=== PATIENT | male | born 1960 | race Caucasian/White ===

== ENCOUNTER 2020-11-19 15:02 | Inpatient (IN) ==
[2020-11-19] MEDS ORDERED: MULTI-VITAMIN INFUSION 10 ML, THIAMINE HCL 100 MG, FOLIC ACID 1 MG in SODIUM CHLORIDE 0... IV ONE (15:23)
[2020-11-19] MEDS ORDERED: LORazepam 2 MG/4 ML VIAL IV STA (15:23)
[2020-11-19 15:47] LABS: Basophils # (auto) 0.02 K/uL (0-0.2); Basophils % (auto) 0.3 %; Eosinophils # (auto) 0.12 K/uL (0-0.5); Eosinophils % (auto) 1.9 %; Hematocrit (blood only) 44.7 % (42-52); Hemoglobin 15.7 g/dL (14.0-18.0); Immature Granulocytes # (auto) 0.01 K/uL (0.00-0.02); Immature Granulocytes % (auto) 0.2 %; Lymphocytes # (auto) 1.76 K/uL (1.2-3.4); Lymphocytes % (auto) 27.2 %; Mean Corpuscular Hemoglobin 31.7 pg (25-34); Mean Corpuscular Hgb Conc 35.1 g/dL (32-36); Mean Corpuscular Volume 90.3 fL (80-100); Mean Platelet Volume 11.2 fL (7.4-10.4); Monocytes # (auto) 0.82 K/uL (0.11-0.59); Monocytes % (auto) 12.7 %; Neutrophils # (auto) 3.75 K/uL (1.4-6.5); Neutrophils % (auto) 57.7 %; Platelet Count 167 K/uL (130-400); RDW Coefficient of Variation 14.3 % (11.5-14.5); RDW Standard Deviation 46.9 fL (36.4-46.3); Red Blood Count 4.95 M/uL (4.7-6.1); White Blood Count 6.48 K/uL (4.8-10.8)
[2020-11-19 16:03] LABS: Partial Thromboplastin Ratio 0.9; Partial Thromboplastin Time 24.5 Seconds (21.0-31.0); Prothrombin Time 10.6 Seconds (9.0-12.0)
[2020-11-19 16:06] LABS: Alanine Aminotransferase 82 U/L (12-78); Albumin Level 3.7 gm/dl (3.4-5.0); Aspartate Aminotransferase 48 U/L (15-37); BUN Creatinine Ratio 12.1 (10-20); Blood Urea Nitrogen 9 mg/dl (7-18); Calcium 8.9 mg/dl (8.5-10.1); Carbon Dioxide 24 mmol/L (21-32); Chloride 100 mmol/L (98-107); Creatinine Clr Calc Pharmacy 106.9 ml/min; Est GFR (African American) 114.6; Est GFR (Non-African American) 98.9; Glucose 230 mg/dl (70-99); Lipase 91 U/L (73-393); Magnesium 1.7 mg/dl (1.8-2.4); Potassium 3.6 mmol/L (3.5-5.1); Sodium 138 mmol/L (136-145)
--- NOTE | 2020-11-19 16:10 | XRay Report ---
XR chest 1V portable HISTORY: 60 years-old Male ETOH w/d. Afib with RVR acute atrial fibrillation. Acute atypical chest p ain COMPARISON: None TECHNIQUE: Portable AP view of the chest FINDINGS: Cardiomediastinal and hilar silhouettes are within normal limits. Mild interstitial coarsening of the lung bases, likely chronic. No pneumothorax, pleural effusion, airspace consolidation or overt pulmo nary edema. Degenerative changes of the shoulders and spine. IMPRESSION: No acute process. ACT 112: Negative or not required by law. The above report was generated using voice recognition software. It may contain grammatical, syntax o r spelling errors. Electronically signed by: Dayron Warner M.D. 11/19/2020 4:09 PM
[2020-11-19 16:17] LABS: Albumin Globulin Ratio 0.9 (0.9-2); Alkaline Phosphatase 99 U/L (45-117); Beta-Hydroxybutyrate 4.73 mg/dl (0.2-2.81); Bilirubin,Total 0.5 mg/dl (0.2-1); Globulin 4.1 gm/dl (2.5-4.0); Thyroid Stimulating Hormone 0.847 uIu/ml (0.300-4.500); Total Protein 7.8 gm/dl (6.4-8.2); Troponin I < 0.015 ng/ml (0-0.045)
[2020-11-19 16:46] LABS: Lyme Ab IgG w/WB Rflx Negative (Negative); Lyme Ab IgM w/WB Rflx Negative (Negative)
[2020-11-19] MEDS ORDERED: MAGNESIUM SULFATE / D5W 1 GM/100 ML BAG IV STA (17:22)
[2020-11-19] MEDS ORDERED: SODIUM CHLORIDE 0.9% 1000ML 1,000 ML IV SCH (17:30)
[2020-11-19 17:43] LABS: Influenza A virus by PCR Negative (Neg); Influenza B virus by PCR Negative (Neg); RSV by PCR Negative (Neg); SARS CoV2 RNA(COVID-19) InHosp NEGATIVE (Negative)
--- NOTE | 2020-11-19 18:04 | History & Physical Report ---
Date of Service November 19, 2020 Assessment & Plan (1) Alcohol intoxication: History of long-term alcohol abuse: Recent admission to [facility] for alcohol intoxication. Reports he developed nausea, abdominal pain, could not drink alcohol anymore, was admitted to hospital with withdrawal symptoms, Was there for 2 days only, after returning home, patient found 3 more bottles of gin, finished all of them in 1 day, Past 2 to 3 days, has been having ongoing nausea, severe abdominal pain, vomiting, no blood in vomit, no dark stool, Was having confusion, tremors, Brought to ER, Patient was given banana bag, will continue with Neuront[facility] withdrawal protocol, IV Ativan ordered Continue thiamine folic acid Patient will need referral for alcohol rehab/counseling Case management consulted (2) Diabetes mellitus: History of type 2 diabetes, has not been taking any medication for years Continues to binge alcohol, Admitted with hyperglycemia, elevated beta- hydroxybutyrate- Ordered for insulin sliding scale check hemoglobin A1c pharmacy consult for glycemic management Severe electrolyte imbalance: Low mag, low K/low phos #2 alcohol abuse Ordered for IV replacement, follow electrolytes closely (3) Low magnesium level: (4) Abnormal LFTs: Secondary to alcoholic hepatitis Repeat labs in a.m. (5) Tachyarrhythmia: Possibly secondary to severe dehydration, chronic alcohol abuse. Rate improved after IV fluid resuscitation, continue IV Ativan, gabapentin for withdrawal symptoms. Admitted to telemetry, IV Lopressor as needed for heart rate above 100 Echo ordered to assess alcoholic cardiomyopathy CODE STATUS: Full code Disposition: Admitted to PCU History of Present Illness Chief Complaint: Alcohol intoxication Primary Care Provider: Luis Enrique Montana MD This is a 59-year-old male with chronic alcohol abuse, drinks 1-2 bottles of gin every day, has been drinking for past 15-20 years, Never been of alcohol and off to get withdrawal symptoms, was in [facility] last week for alcohol intoxication/withdrawal, After discharge, patient went back drinking alcohol again: Was found to be disoriented, at roadside by police, was brought here, patient is very tachycardic, tremors, sweating Initial EKG showed rapid A. fib RVR with heart rate of 140s After receiving Ativan, IV fluids, repeat EKG shows normal sinus rhythm with sinus tachycardia. LFTs elevated, During my interview, patient was oriented to person only, has ongoing tremors, Says that he has been dealing with his alcoholism for years, was so sober for for 5 years, started to drink again since July this year. Denies of any illicit drug abuse, no IV drugs. Patient has not been seeing any family physician for years Supposed to follow-up with Dr. Dale at [facility], never showed up to any of the appointments. Diagnosed with diabetes years ago, has not been taking any meds Blood sugar elevated 300 with elevated beta hydroxybutyrate, Normal anion gap, normal bicarb level. LFTs elevated suggestive of alcoholic hepatitis Allergies Allergy/AdvReac Type Severity Reaction Status Date / Time cat dander Allergy Intermediate ITCHY Verified 11/19/20 16:11 EYES, SNEEZING, CONGESTION Home Medications Medication Instructions Recorded Confirmed Type No Known Home Medications 03/23/20 11/19/20 History Past Med/Surg History Medical History (Updated 11/20/20 @ 00:08 by Keith Adame PA-C) Alcoholism Diabetes Diabetes mellitus Surgical History (Updated 11/20/20 @ 00:08 by Keith Adame PA-C) No significant past surgical history Social History Smoking Status: Current every day smoker Tobacco Type: Cigarettes Cigarettes Per Day: 1 pack/day; Smoking End Date: 11/18/20; Hx Alcohol Use: Yes Alcohol type: beer and hard liquor Hx Substance Use: No Preferred Language: Haitian Cook Apprentice Required: No Beliefs That Will Affect Care: Faith Current Living Situation: Alone Current Living Situation Comment: Lives at home alone independently Feels Safe at Home: Yes Safety Concerns: Feels Safe At This Time Assistive Devices: None Review of Systems Review of Systems: Unobtainable due to cognitive status (Confused/intoxicated) Physical Exam Physical Exam: Physical exam: General: Intoxicated, alert, oriented to person only /very tremulous, diaphoretic Heart: Tachycardic Lungs: Clear to auscultate, no wheeze or rales Abdomen: Soft /distended abdomen, normal bowel sound Extremity: No cyanosis, no deformity, Neuro: No focal neurological deficit noted, moving all limbs, Intoxicated Psych: Alert, oriented to person only flat affect Results & Data Results & Data ([facility]) Vital Signs (Past 12 Hours) Vital Signs Temp Pulse Resp BP Pulse Ox 11/19/20 16:30 153 H 19 164/117 H 95 11/19/20 16:01 143 H 21 179/114 H 95 11/19/20 15:37 152 H 16 185/106 H 95 11/19/20 15:24 93 11/19/20 15:14 152 H 16 170/119 H 11/19/20 14:53 37.3 C 159 H 20 170/119 H 92
[2020-11-19 18:06] LABS: Appearance Urine Clear (Clear); Bilirubin Urine Negative (Negative); Blood Urine Negative (Negative); Color Urine Yellow; Glucose Urine UA 3+ (Negative); Ketones Urine 1+ (Negative); Leukocyte Esterase Urine Negative (Negative); Nitrite Urine Negative (Negative); Protein Urine Negative (Negative); Specific Gravity Urine 1.019 (1.000-1.030); Urobilinogen Urine Negative (Negative); pH Urine 6.5 (4.5-7.5)
[2020-11-19] MEDS ORDERED: ONDANSETRON INJ 2 MG/ML 2 ML VIAL IV PRN (18:13)
[2020-11-19] MEDS ORDERED: ALUMINUM/MAGNESIUM SUSP 30 ML UDC PO PRN (18:13)
[2020-11-19] MEDS ORDERED: ACETAMINOPHEN 325 MG TAB PO PRN (18:13)
[2020-11-19] MEDS ORDERED: MAGNESIUM HYDROXIDE SUSP 30 ML UDC PO PRN (18:13)
[2020-11-19] MEDS ORDERED: GLUCOSE 40% GEL 15 GM TUBE PO PRN (18:13)
[2020-11-19] MEDS ORDERED: NITROGLYCERIN SL 0.4 MG/TAB TAB SL PRN (18:13)
[2020-11-19] MEDS ORDERED: GLUCAGON FOR INJ 1 MG VIAL SQ PRN (18:13)
[2020-11-19] MEDS ORDERED: GLUCOSE 10 TABS/TUBE PO PRN (18:13)
[2020-11-19] MEDS ORDERED: POLYETHYLENE (MIRALAX) 17 GM PACK PO PRN (18:13)
[2020-11-19] MEDS ORDERED: DEXTROSE 50% 50 ML SYRINGE IV PRN (18:13)
[2020-11-19] MEDS ORDERED: CARBOHYDRATES FOR HYPOGLYCEMIA PO PRN (18:13)
[2020-11-19] MEDS ORDERED: PHARMACY GLYCEMIC MGMT CONSULT PRN (18:29)
[2020-11-19 18:34] LABS: Amphetamines+Metham, Urine Neg (Neg); Barbiturates, Urine Neg (Neg); Benzodiazepine, Urine Pos (Neg); Cocaine, Urine Neg (Neg); MDMA (Ecstacy), Urine Neg (Neg); Methadone, Urine Neg (Neg); Opiate, Urine Neg (Neg); Phencyclidine, Urine Neg (Neg)
[2020-11-19] MEDS ORDERED: GABAPENTIN 600 MG TAB PO ONE (20:28)
[2020-11-19] MEDS ORDERED: METOPROLOL TARTRATE 1 MG/ML VIAL IV PRN (20:28)
[2020-11-19] MEDS ORDERED: LORazepam 3 MG/6 ML VIAL IV PRN (20:28)
[2020-11-19] MEDS ORDERED: LACTATED RINGER'S 1,000 ML IV SCH (20:28)
[2020-11-19] MEDS ORDERED: GABAPENTIN 1200MG ALCOHOL WITHDRAWAL LOAD PO STA (20:28)
[2020-11-19] MEDS ORDERED: ATIVAN IV ALCOHOL WITHDRAWL IV PRN (20:28)
[2020-11-19] MEDS: FOLIC ACID 1 MG TAB PO SCH (21:09)
[2020-11-19] MEDS: THIAMINE HCL 100 MG TAB PO SCH (21:10)
[2020-11-19] MEDS: INSULIN ASPART 100 UNITS/ML 3 ML PEN SC SCH (21:11)
[2020-11-19] MEDS: LORazepam 1 MG/2 ML VIAL IV PRN (22:01)
--- NOTE | 2020-11-19 23:12 | Electrocardiogram Report ---
Test Reason : Blood Pressure : / mmHG Vent. Rate : 159 BPM Atrial Rate : 113 BPM P-R Int : 000 ms QRS Dur : 122 ms QT Int : 298 ms P-R-T Axes : 000 084 001 degrees QTc Int : 484 ms Atrial fibrillation with rapid ventricular response Right bundle branch block Abnormal ECG No previous ECGs available Confirmed by Obinna Mcgill ([id number]) on 11/19/2020 11:12:11 PM Referred By: Confirmed By:Obinna Mcgill
--- NOTE | 2020-11-20 00:06 | Emergency Department Note ---
History of Present Illness General Chief complaint: Alcohol Withdrawal Stated complaint: ALCOHOL WITHDRAWL History of Present Illness Maximum Pain Intensity: 0 This is a 60-year-old male presenting to the emergency department via ambulance for evaluation of alcohol withdrawal symptoms. The patient is an alcoholic often drinking more than a bottle of alcohol in a normal day. The patient was admitted to [facility] within the past 2 weeks for similar withdrawal symptoms, was released home, and immediately started drinking. He states that his last alcohol was about 24 to 25 hours ago. The patient typically drinks hard liquor. He is concerned as he is very shaky at this time and feels very nauseated without vomiting. He is sweating profusely and feels like his heart is racing in his chest. The patient has not had fevers or chills. No known exposure to disease. He rates his current discomfort a 9/10. Home Medications Medication Instructions Recorded Confirmed Type No Known Home Medications 03/23/20 11/19/20 History Allergies Allergy/AdvReac Type Severity Reaction Status Date / Time cat dander Allergy Intermediate ITCHY Verified 11/19/20 16:11 EYES, SNEEZING, CONGESTION Past Med/Surg History Medical History (Updated 11/20/20 @ 00:08 by Keith Adame PA-C) Alcoholism Diabetes Diabetes mellitus Surgical History (Updated 11/20/20 @ 00:08 by Keith Adame PA-C) No significant past surgical history Social History Smoking Status: Current every day smoker Tobacco Type: Cigarettes Cigarettes Per Day: 1 pack/day; Smoking End Date: 11/18/20; Hx Alcohol Use: Yes Alcohol type: beer and hard liquor Hx Substance Use: No Preferred Language: Mongolian Quality Assurance Nurse Required: No Beliefs That Will Affect Care: Islam Current Living Situation: Alone Current Living Situation Comment: Lives at home alone independently Feels Safe at Home: Yes Safety Concerns: Feels Safe At This Time Review of Systems A total of 10 systems reviewed and were otherwise negative Physical Exam Vital Signs Vital Signs - 24 hr 11/19/20 14:53 11/19/20 15:14 11/19/20 15:24 Temperature 37.3 C Temperature Source Oral Pulse Rate 159 H 152 H Pulse Rate from SpO2 Sensor Respiratory Rate 20 16 Respiratory Effort / Characteristics Non-Labored Spontaneous Respiratory Depth Normal Respiratory Pattern Regular Blood Pressure 170/119 H 170/119 H Blood Pressure Mean 136 136 Blood Pressure Position Lying Pulse Oximetry 92 93 Oxygen Delivery Method Room Air Room Air Sepsis Recent Fever Within 48 Hours No Sepsis New/Unexplained Change in Mental Status N/A Sepsis Action Taken by Nursing No Action Required 11/19/20 15:37 11/19/20 16:01 11/19/20 16:30 Temperature Temperature Source Pulse Rate 152 H 143 H 153 H Pulse Rate from SpO2 Sensor 151 H 139 H 153 H Respiratory Rate 16 21 19 Respiratory Effort / Characteristics Respiratory Depth Respiratory Pattern Blood Pressure 185/106 H 179/114 H 164/117 H Blood Pressure Mean 132 135 132 Blood Pressure Position Pulse Oximetry 95 95 95 Oxygen Delivery Method Sepsis Recent Fever Within 48 Hours Sepsis New/Unexplained Change in Mental Status Sepsis Action Taken by Nursing 11/19/20 17:00 11/19/20 17:30 11/19/20 18:00 Temperature Temperature Source Pulse Rate 133 H 93 H 94 H Pulse Rate from SpO2 Sensor 131 H 93 H 94 H Respiratory Rate 11 L 16 14 Respiratory Effort / Characteristics Respiratory Depth Respiratory Pattern Blood Pressure 158/104 H 150/90 H 160/91 H Blood Pressure Mean 122 110 114 Blood Pressure Position Pulse Oximetry 93 91 93 Oxygen Delivery Method Sepsis Recent Fever Within 48 Hours Sepsis New/Unexplained Change in Mental Status Sepsis Action Taken by Nursing VITALS: Vitals are noted on the nurse's note and reviewed by myself. Vital sig ns with notable tachycardia and elevated blood pressure GENERAL: Diaphoretic and tremulous male who appears in moderate discomfort HEAD: Normocephalic atraumatic. NECK: Supple without nuchal rigidity. No lymphadenopathy. No thyromegaly. Cervical spine is nontender. HEART: Tachycardic rate LUNGS: Clear to auscultation bilaterally without wheezes, rales or rhonchi. No retractions or accessory muscle use. ABDOMEN: Positive normal bowel sounds x 4. Soft, nontender, without masses or organomegaly. No guarding or rebound tenderness. MUSCULOSKELETAL: No muscle atrophy, erythema, or edema noted. NEURO: Patient was alert and oriented to person place and time. CN II through XII grossly intact. Course Administered Medications Folic Acid (Folic Acid 1 Mg Tab) 1 mg PO QAM SHUN Stop: 12/19/20 20:27 Last Admin: 11/19/20 21:09 Dose: 1 mg Documented by: [id number] Lorazepam (Ativan) 1 mg in 2 mls @ 2 mls/min IV UD PRN; Protocol PRN Reason: EtOH Withdrawl AWSS Score 6,7 Stop: 12/19/20 20:27 Last Admin: 11/19/20 22:01 Dose: 2 mls/min Documented by: [id number] Lactated Ringer's (Lr) 1,000 mls @ 125 mls/hr IV .Q8H SHUN Stop: 11/20/20 04:27 Last Admin: 11/19/20 20:47 Dose: 125 mls/hr Documented by: [id number] Insulin Aspart (Insulin Aspart 100 Units/Ml 3 Ml Pen) 0 units SC ACHS SHUN Stop: 12/19/20 20:59 Last Admin: 11/19/20 21:11 Dose: 8 units Documented by: [id number] Cosigned by: [id number] Thiamine HCl (Thiamine Hcl 100 Mg Tab) 100 mg PO QAM SHUN Stop: 12/19/20 20:27 Last Admin: 11/19/20 21:10 Dose: 100 mg Documented by: [id number] Discontinued Medications Gabapentin (Gabapentin 600 Mg Tab) 1,200 mg PO NOW ONE Stop: 11/19/20 20:29 Last Admin: 11/19/20 21:09 Dose: 1,200 mg Documented by: [id number] Lorazepam (Ativan) 2 mg in 4 mls @ 4 mls/min IV NOW STA Stop: 11/19/20 15:24 Last Admin: 11/19/20 16:22 Dose: 4 mls/min Documented by: [id number] Multivitamins 10 ml/ Thiamine HCl 100 mg/ Folic Acid 1 mg/Sodium Chloride 1,011.2 mls @ 1,011.2 mls/hr IV .Q1H ONE Stop: 11/19/20 16:22 Last Infusion: 11/19/20 17:07 Dose: 0 mls/hr Documented by: [id number] Admin: 11/19/20 16:22 Dose: 1,011.2 mls/hr Documented by: [id number] Sodium Chloride (Nss 1000ml) 1,000 mls @ 999 mls/hr IV .Q1H1M SHUN Stop: 11/19/20 18:30 Last Infusion: 11/19/20 19:51 Dose: 0 mls/hr Documented by: [id number] Admin: 11/19/20 18:40 Dose: 999 mls/hr Documented by: [id number] Magnesium Sulfate/Dextrose (Magnesium Sulfate / D5w) 1 gm in 100 mls @ 100 mls/hr IV NOW STA Stop: 11/19/20 18:21 Last Infusion: 11/19/20 19:51 Dose: 0 mls/hr Documented by: [id number] Admin: 11/19/20 18:40 Dose: 100 mls/hr Documented by: [id number] Medical Decision Making Differential Diagnosis Differential includes alcohol withdrawal, DTs, diabetes, acute coronary syndrome, myocardial infarction, CVA, TIA, anemia, infection, pneumonia, UTI, pyelonephritis, poor nutrition, dehydration, electrolyte disturbance,hypoglycemia. Laboratory Data Result diagrams: 11/19/20 15:34 11/19/20 15:34 Lab Results 11/19/20 11/19/20 11/19/20 Range/Units 15:34 15:34 15:34 WBC 6.48 (4.8-10.8) K/uL RBC 4.95 (4.7-6.1) M/uL Hgb 15.7 (14.0-18.0) g/dL Hct 44.7 (42-52) % MCV 90.3 (80-100) fL MCH 31.7 (25-34) pg MCHC 35.1 (32-36) g/dL RDW Std Deviation 46.9 H (36.4-46.3) fL RDW Coeff of Amara 14.3 (11.5-14.5) % Plt Count 167 (130-400) K/uL MPV 11.2 H (7.4-10.4) fL Immature Gran % (Auto) 0.2 % Neut % (Auto) 57.7 % Lymph % (Auto) 27.2 % [place] % (Auto) 12.7 % Eos % (Auto) 1.9 % Baso % (Auto) 0.3 % Neut # (Auto) 3.75 (1.4-6.5) K/uL Lymph # (Auto) 1.76 (1.2-3.4) K/uL [place] # (Auto) 0.82 H (0.11-0.59) K/uL Eos # (Auto) 0.12 (0-0.5) K/uL Baso # (Auto) 0.02 (0-0.2) K/uL Immature Gran # (Auto) 0.01 (0.00-0.02) K/uL PT 10.6 (9.0-12.0) Seconds INR 1.0 (0.9-1.1) APTT 24.5 (21.0-31.0) Seconds PTT Ratio 0.9 Sodium 138 (136-145) mmol/L Potassium 3.6 (3.5-5.1) mmol/L Chloride 100 (98-107) mmol/L Carbon Dioxide 24 (21-32) mmol/L Anion Gap 13.0 H (3-11) BUN 9 (7-18) mg/dl Creatinine 0.74 (0.6-1.4) mg/dl Est Cr Clr Drug Dosing 106.9 ml/min Est GFR ( Amer) 114.6 Est GFR (Non-Af Amer) 98.9 BUN/Creatinine Ratio 12.1 (10-20) Glucose 230 H (70-99) mg/dl Calcium 8.9 (8.5-10.1) mg/dl Phosphorus (2.5-4.9) mg/dl Magnesium 1.7 L (1.8-2.4) mg/dl Total Bilirubin 0.5 (0.2-1) mg/dl AST 48 H (15-37) U/L ALT 82 H (12-78) U/L Alkaline Phosphatase 99 (45-117) U/L Troponin I < 0.015 (0-0.045) ng/ml Total Protein 7.8 (6.4-8.2) gm/dl Albumin 3.7 (3.4-5.0) gm/dl Globulin 4.1 H (2.5-4.0) gm/dl Albumin/Globulin Ratio 0.9 (0.9-2) Lipase 91 (73-393) U/L Beta-Hydroxybutyric Acd 4.73 H (0.2-2.81) mg/dl TSH 0.847 (0.300-4.500) uIu/ml Urine Color Urine Appearance (Clear) Urine pH (4.5-7.5) Ur Specific [place] (1.000-1.030) Urine Protein (Negative) Urine Glucose (UA) (Negative) Urine Ketones (Negative) Urine Blood (Negative) Urine Nitrite (Negative) Urine Bilirubin (Negative) Urine Urobilinogen (Negative) Ur Leukocyte Esterase (Negative) Urine Opiates Screen (Neg) Ur Methadone, Qual (Neg) Urine Barbiturates (Neg) Ur Phencyclidine (PCP) (Neg) U Amphetamin/Meth Scrn (Neg) MDMA (Ecstasy) Screen (Neg) U Benzodiazepines Scrn (Neg) Ur Cocaine Metabolite (Neg) U Marijuana (THC) Screen (Neg) Ethyl Alcohol mg/dL (0-3) mg/dl Lyme Disease IgG Ab (Negative) Lyme Disease IgM Ab (Negative) COVID-19 Eval Order SARS-CoV-2 (PCR) (Negative) Influenza Type A (PCR) (Neg) Influenza Type B (PCR) (Neg) RSV (RT-PCR) (Neg) 11/19/20 11/19/20 11/19/20 Range/Units 15:34 15:34 15:34 WBC (4.8-10.8) K/uL RBC (4.7-6.1) M/uL Hgb (14.0-18.0) g/dL Hct (42-52) % MCV (80-100) fL MCH (25-34) pg MCHC (32-36) g/dL RDW Std Deviation (36.4-46.3) fL RDW Coeff of Amara (11.5-14.5) % Plt Count (130-400) K/uL MPV (7.4-10.4) fL Immature Gran % (Auto) % Neut % (Auto) % Lymph % (Auto) % [place] % (Auto) % Eos % (Auto) % Baso % (Auto) % Neut # (Auto) (1.4-6.5) K/uL Lymph # (Auto) (1.2-3.4) K/uL [place] # (Auto) (0.11-0.59) K/uL Eos # (Auto) (0-0.5) K/uL Baso # (Auto) (0-0.2) K/uL Immature Gran # (Auto) (0.00-0.02) K/uL PT (9.0-12.0) Seconds INR (0.9-1.1) APTT (21.0-31.0) Seconds PTT Ratio Sodium (136-145) mmol/L Potassium (3.5-5.1) mmol/L Chloride (98-107) mmol/L Carbon Dioxide (21-32) mmol/L Anion Gap (3-11) BUN (7-18) mg/dl Creatinine (0.6-1.4) mg/dl Est Cr Clr Drug Dosing ml/min Est GFR ( Amer) Est GFR (Non-Af Amer) BUN/Creatinine Ratio (10-20) Glucose (70-99) mg/dl Calcium (8.5-10.1) mg/dl Phosphorus 3.0 (2.5-4.9) mg/dl Magnesium (1.8-2.4) mg/dl Total Bilirubin (0.2-1) mg/dl AST (15-37) U/L ALT (12-78) U/L Alkaline Phosphatase (45-117) U/L Troponin I (0-0.045) ng/ml Total Protein (6.4-8.2) gm/dl Albumin (3.4-5.0) gm/dl Globulin (2.5-4.0) gm/dl Albumin/Globulin Ratio (0.9-2) Lipase (73-393) U/L Beta-Hydroxybutyric Acd (0.2-2.81) mg/dl TSH (0.300-4.500) uIu/ml Urine Color Urine Appearance (Clear) Urine pH (4.5-7.5) Ur Specific [place] (1.000-1.030) Urine Protein (Negative) Urine Glucose (UA) (Negative) Urine Ketones (Negative) Urine Blood (Negative) Urine Nitrite (Negative) Urine Bilirubin (Negative) Urine Urobilinogen (Negative) Ur Leukocyte Esterase (Negative) Urine Opiates Screen (Neg) Ur Methadone, Qual (Neg) Urine Barbiturates (Neg) Ur Phencyclidine (PCP) (Neg) U Amphetamin/Meth Scrn (Neg) MDMA (Ecstasy) Screen (Neg) U Benzodiazepines Scrn (Neg) Ur Cocaine Metabolite (Neg) U Marijuana (THC) Screen (Neg) Ethyl Alcohol mg/dL 58.0 H (0-3) mg/dl Lyme Disease IgG Ab Negative (Negative) Lyme Disease IgM Ab Negative (Negative) COVID-19 Eval Order SARS-CoV-2 (PCR) (Negative) Influenza Type A (PCR) (Neg) Influenza Type B (PCR) (Neg) RSV (RT-PCR) (Neg) 11/19/20 11/19/20 11/19/20 Range/Units 16:52 16:52 17:48 WBC (4.8-10.8) K/uL RBC (4.7-6.1) M/uL Hgb (14.0-18.0) g/dL Hct (42-52) % MCV (80-100) fL MCH (25-34) pg MCHC (32-36) g/dL RDW Std Deviation (36.4-46.3) fL RDW Coeff of Amara (11.5-14.5) % Plt Count (130-400) K/uL MPV (7.4-10.4) fL Immature Gran % (Auto) % Neut % (Auto) % Lymph % (Auto) % [place] % (Auto) % Eos % (Auto) % Baso % (Auto) % Neut # (Auto) (1.4-6.5) K/uL Lymph # (Auto) (1.2-3.4) K/uL [place] # (Auto) (0.11-0.59) K/uL Eos # (Auto) (0-0.5) K/uL Baso # (Auto) (0-0.2) K/uL Immature Gran # (Auto) (0.00-0.02) K/uL PT (9.0-12.0) Seconds INR (0.9-1.1) APTT (21.0-31.0) Seconds PTT Ratio Sodium (136-145) mmol/L Potassium (3.5-5.1) mmol/L Chloride (98-107) mmol/L Carbon Dioxide (21-32) mmol/L Anion Gap (3-11) BUN (7-18) mg/dl Creatinine (0.6-1.4) mg/dl Est Cr Clr Drug Dosing ml/min Est GFR ( Amer) Est GFR (Non-Af Amer) BUN/Creatinine Ratio (10-20) Glucose (70-99) mg/dl Calcium (8.5-10.1) mg/dl Phosphorus (2.5-4.9) mg/dl Magnesium (1.8-2.4) mg/dl Total Bilirubin (0.2-1) mg/dl AST (15-37) U/L ALT (12-78) U/L Alkaline Phosphatase (45-117) U/L Troponin I (0-0.045) ng/ml Total Protein (6.4-8.2) gm/dl Albumin (3.4-5.0) gm/dl Globulin (2.5-4.0) gm/dl Albumin/Globulin Ratio (0.9-2) Lipase (73-393) U/L Beta-Hydroxybutyric Acd (0.2-2.81) mg/dl TSH (0.300-4.500) uIu/ml Urine Color Yellow Urine Appearance Clear (Clear) Urine pH 6.5 (4.5-7.5) Ur Specific [place] 1.019 (1.000-1.030) Urine Protein Negative (Negative) Urine Glucose (UA) 3+ H (Negative) Urine Ketones 1+ H (Negative) Urine Blood Negative (Negative) Urine Nitrite Negative (Negative) Urine Bilirubin Negative (Negative) Urine Urobilinogen Negative (Negative) Ur Leukocyte Esterase Negative (Negative) Urine Opiates Screen (Neg) Ur Methadone, Qual (Neg) Urine Barbiturates (Neg) Ur Phencyclidine (PCP) (Neg) U Amphetamin/Meth Scrn (Neg) MDMA (Ecstasy) Screen (Neg) U Benzodiazepines Scrn (Neg) Ur Cocaine Metabolite (Neg) U Marijuana (THC) Screen (Neg) Ethyl Alcohol mg/dL (0-3) mg/dl Lyme Disease IgG Ab (Negative) Lyme Disease IgM Ab (Negative) COVID-19 Eval Order CovFluRsv at [facility] SARS-CoV-2 (PCR) NEGATIVE (Negative) Influenza Type A (PCR) Negative (Neg) Influenza Type B (PCR) Negative (Neg) RSV (RT-PCR) Negative (Neg) 11/19/20 Range/Units 17:48 WBC (4.8-10.8) K/uL RBC (4.7-6.1) M/uL Hgb (14.0-18.0) g/dL Hct (42-52) % MCV (80-100) fL MCH (25-34) pg MCHC (32-36) g/dL RDW Std Deviation (36.4-46.3) fL RDW Coeff of Amara (11.5-14.5) % Plt Count (130-400) K/uL MPV (7.4-10.4) fL Immature Gran % (Auto) % Neut % (Auto) % Lymph % (Auto) % [place] % (Auto) % Eos % (Auto) % Baso % (Auto) % Neut # (Auto) (1.4-6.5) K/uL Lymph # (Auto) (1.2-3.4) K/uL [place] # (Auto) (0.11-0.59) K/uL Eos # (Auto) (0-0.5) K/uL Baso # (Auto) (0-0.2) K/uL Immature Gran # (Auto) (0.00-0.02) K/uL PT (9.0-12.0) Seconds INR (0.9-1.1) APTT (21.0-31.0) Seconds PTT Ratio Sodium (136-145) mmol/L Potassium (3.5-5.1) mmol/L Chloride (98-107) mmol/L Carbon Dioxide (21-32) mmol/L Anion Gap (3-11) BUN (7-18) mg/dl Creatinine (0.6-1.4) mg/dl Est Cr Clr Drug Dosing ml/min Est GFR ( Amer) Est GFR (Non-Af Amer) BUN/Creatinine Ratio (10-20) Glucose (70-99) mg/dl Calcium (8.5-10.1) mg/dl Phosphorus (2.5-4.9) mg/dl Magnesium (1.8-2.4) mg/dl Total Bilirubin (0.2-1) mg/dl AST (15-37) U/L ALT (12-78) U/L Alkaline Phosphatase (45-117) U/L Troponin I (0-0.045) ng/ml Total Protein (6.4-8.2) gm/dl Albumin (3.4-5.0) gm/dl Globulin (2.5-4.0) gm/dl Albumin/Globulin Ratio (0.9-2) Lipase (73-393) U/L Beta-Hydroxybutyric Acd (0.2-2.81) mg/dl TSH (0.300-4.500) uIu/ml Urine Color Urine Appearance (Clear) Urine pH (4.5-7.5) Ur Specific [place] (1.000-1.030) Urine Protein (Negative) Urine Glucose (UA) (Negative) Urine Ketones (Negative) Urine Blood (Negative) Urine Nitrite (Negative) Urine Bilirubin (Negative) Urine Urobilinogen (Negative) Ur Leukocyte Esterase (Negative) Urine Opiates Screen Neg (Neg) Ur Methadone, Qual Neg (Neg) Urine Barbiturates Neg (Neg) Ur Phencyclidine (PCP) Neg (Neg) U Amphetamin/Meth Scrn Neg (Neg) MDMA (Ecstasy) Screen Neg (Neg) U Benzodiazepines Scrn Pos H (Neg) Ur Cocaine Metabolite Neg (Neg) U Marijuana (THC) Screen Neg (Neg) Ethyl Alcohol mg/dL (0-3) mg/dl Lyme Disease IgG Ab (Negative) Lyme Disease IgM Ab (Negative) COVID-19 Eval Order SARS-CoV-2 (PCR) (Negative) Influenza Type A (PCR) (Neg) Influenza Type B (PCR) (Neg) RSV (RT-PCR) (Neg) Imaging Data Radiologist's Impression: Chest X-Ray 11/19/20 15:23 XR chest 1V portable HISTORY: 60 years-old Male ETOH w/d. Afib with RVR acute atrial fibrillation. Acute atypical chest pain COMPARISON: None TECHNIQUE: Portable AP view of the chest FINDINGS: Cardiomediastinal and hilar silhouettes are within normal limits. Mild interstitial coarsening of the lung bases, likely chronic. No pneumothorax, pleural effusion, airspace consolidation or overt pulmonary edema. Degenerative changes of the shoulders and spine. IMPRESSION: No acute process. ACT 112: Negative or not required by law. The above report was generated using voice recognition software. It may contain grammatical, syntax or spelling errors. Electronically signed by: Dayron Warner M.D. 11/19/2020 4:09 PM ECG Data Additional Comments: EKG #1: Atrial fibrillation with rapid ventricular response @159 Right bundle branch block Abnormal ECG No previous ECGs available EKG #2: Normal sinus rhythm @93 bpm Right bundle branch block When compared with ECG of 19-NOV-2020 15:20; Sinus rhythm has replaced Atrial fibrillation Vent. rate has decreased BY 66 BPM Non-specific change in ST segment in Inferior leads MDM Narrative Physical exam and history were performed. Nursing notes, EMR, and Medication List were personally reviewed. Patient appears to have a history of alcoholism with his last drink being roughly 3 PM yesterday. The patient is quite diaphoretic and tachycardic on examination. EKG was performed and is concerning as the patient seems to be in atrial fibrillation with rapid ventricular response. The patient does not report a history of this in the past. IV access was established and labs were obtained. He was given a banana bag as well as 2 mg IV Ativan. Chest x-ray was performed. Covid swab was gathered. An order was placed for continuous cardiac monitoring. The monitor shows a rate of 93 with normal sinus rhythm. The patient blood work is as above and was reviewed. He does not have a significantly elevated white blood cell count, gross anemia, bandemia, or significant electrolyte imbalance. Transaminases are slightly elevated. Tropon in x1 is negative. Glucose is 230 and he does have a slightly elevated beta hydroxy. TSH shows euthyroid state. Urine is with a glucose but no obvious infection. Drug abuse screen was positive for benzodiazepines, however we did provide those here in the ER. After much discussion and displeasure reported from the patient, he did ultimately agree to a Covid swab which was negative. The case was discussed with my attending as the patient was initially still tachycardic. The magnesium is slightly low and this was repleted through the IV. We did give the patient a second liter of normal saline, and this did seem to bring his rate down and he is no longer in A. fib. Overall the patient does not appear well for discharge home. He seems to be withdrawing despite having an alcohol of 58 here in the department. He did have an episode of A. fib with RVR that does seem to be true on EKG, however this did correct with magnesium and fluids. He is an uncontrolled diabetic. The case was discussed with the on-call hospitalist team who agreed to evaluate the patient here in the department. Please see their dictation for further patient course, plan, and disposition. The chart was completed utilizing [employer] Speech Voice Recognition Software. Grammatical errors, random word insertions, pronoun errors, and incomplete sentences are an occasional consequence of this system due to software limitations, ambient noise, and hardware issues. Any formal questions or concerns about the content, text, or information contained within the body of this dictation should be directly addressed to the provider for clarification. . Impression & Plan Alcohol withdrawal, Diabetes mellitus, Low magnesium level, Abnormal LFTs, Tachyarrhythmia Discharge Plan Visit Data Chief Complaint: Alcohol Withdrawal Stated Complaint: ALCOHOL WITHDRAWL ED Provider: Martin Ghotra ED Midlevel Provider: Keith Adame Discharge Problem: Alcohol withdrawal, Diabetes mellitus, Low magnesium level, Abnormal LFTs, Tachyarrhythmia Patient Disposition: Admitted As Inpatient Discharge Instructions Interventions: ED Discharge Assessment Last Done: 11/19/20 19:54
[2020-11-20] MEDS: GABAPENTIN 600 MG TAB PO SCH ×4 (01:47→23:44)
[2020-11-20] MEDS ORDERED: hydrALAZINE HCL 20 MG/ML VIAL IV STA (01:57)
[2020-11-20 07:43] LABS: Albumin Level 2.9 gm/dl (3.4-5.0); BUN Creatinine Ratio 12.4 (10-20); Calcium 8.6 mg/dl (8.5-10.1); Creatinine Clr Calc Pharmacy 125.5 ml/min; Est GFR (African American) 122.4; Est GFR (Non-African American) 105.6; Magnesium 1.9 mg/dl (1.8-2.4); Potassium 3.9 mmol/L (3.5-5.1)
[2020-11-20 07:51] LABS: Albumin Globulin Ratio 0.8 (0.9-2); Bilirubin,Total 1.2 mg/dl (0.2-1); Globulin 3.6 gm/dl (2.5-4.0); Total Protein 6.5 gm/dl (6.4-8.2)
[2020-11-20] MEDS ORDERED: INSULIN GLARGINE SOLOSTAR 100 UNITS/ML 3 ML PEN SC STA (08:00)
[2020-11-20] MEDS: LORazepam 2 MG/4 ML VIAL IV PRN (08:10)
[2020-11-20] MEDS: INSULIN ASPART 100 UNITS/ML 3 ML PEN SC SCH ×4 (08:19→21:39)
[2020-11-20] MEDS: ASPIRIN 81 MG ECTAB PO SCH (08:25)
[2020-11-20] MEDS: THIAMINE HCL 100 MG TAB PO SCH (08:25)
[2020-11-20] MEDS: FOLIC ACID 1 MG TAB PO SCH (08:25)
--- NOTE | 2020-11-20 08:58 | Electrocardiogram Report ---
Test Reason : Blood Pressure : / mmHG Vent. Rate : 093 BPM Atrial Rate : 093 BPM P-R Int : 176 ms QRS Dur : 134 ms QT Int : 386 ms P-R-T Axes : 063 015 042 degrees QTc Int : 479 ms Normal sinus rhythm Right bundle branch block Abnormal ECG When compared with ECG of 19-NOV-2020 15:20, Sinus rhythm has replaced Atrial fibrillation Vent. rate has decreased BY 66 BPM Confirmed by Mike Haas ([id number]) on 11/20/2020 8:58:40 AM Referred By: REFERRED SELF Confirmed By:Mike Haas
--- NOTE | 2020-11-20 09:25 | Electrocardiogram Report ---
Test Reason : Blood Pressure : / mmHG Vent. Rate : 062 BPM Atrial Rate : 062 BPM P-R Int : 182 ms QRS Dur : 132 ms QT Int : 474 ms P-R-T Axes : 062 008 020 degrees QTc Int : 481 ms Normal sinus rhythm Right bundle branch block Abnormal ECG When compared with ECG of 19-NOV-2020 18:17, Vent. rate has decreased BY 31 BPM Confirmed by Mike Haas ([id number]) on 11/20/2020 9:24:42 AM Referred By: REFERRED SELF Confirmed By:Mike Haas
[2020-11-20 09:40] LABS: Estimated Average Glucose 214 mg/dl; Hemoglobin A1C 9.1 % (4.5-5.6)
--- NOTE | 2020-11-20 10:35 | Pharmacy Report ---
Pharmacy Glycemic Short Note 2 - Date of Service November 20, 2020 - Glycemic Short BSG Results (Last 24 hours): 11/19/20 11/19/20 11/20/20 15:34 20:22 06:36 Glucose 230 H 177 H POC Glucose 174 H 11/20/20 07:14 Glucose POC Glucose 170 H OUTPATIENT ANTIDIABETIC REGIMEN: * None * HbA1c = 9.1% (11/20/2020) ASSESSMENT: * 60 yo M admitted last evening secondary to alcohol intoxication. Pharmacy has been consulted for assistance with inpatient glycemic management. * Patient has a h/o T2DM and is non-compliant with all medications. He was admitted to [facility] in August 2020 for similar issues. His HbA1c at that time was 10.1%. He was prescribed Lantus 20 units SC HS upon discharge from hospital. Outpatient fill history indicates this was never picked up by patient. * BSG was 174 mg/dL at bedtime last night. Patient received 8 units of Novolog. No basal insulin was given. * Fasting BSG was elevated at 170 mg/dL today. Will start Lantus this AM. No change to Novolog at this time. PLAN FOR INPATIENT GLYCEMIC CONTROL: * Basal insulin * Lantus 15 units SQ AM * Bolus insulin * NovoLog per scale ACHS or Q6hrs while NPO * Goal Range: Low 110 mg/dL - High 140 mg/dL * Correction Factor: 30 mg/dL/unit * Nutritional / Prandial insulin per carb ratio of 1 unit per 10 grams CHO consumed PLAN FOR DISCHARGE: * HbA1c = 9.1% from this admission. Goal HbA1c for this patient would be less than 7% given his age and comorbidities. * Because compliance and cost is an issue for this patient, upon discharge would recommend: * Metformin ER 500 mg once daily with dinner. Continue to titrate metformin dosing upwards as recommended. Dosage increases should be made in increments of 500 mg weekly, up to 2,000 mg/day PO, given in divided doses. Doses above 2000 mg/day may be better tolerated if divided and given 3 times per day with meals. Max: 2,550 mg/day PO, in divided doses. B12 supplementation may be necessary with residential metformin use. * Glipizide ER 5 mg once daily with breakfast (or first meal of the day). May increase by 5 mg per week until goal HbA1c is reached unless patient is experiencing hypoglycemia. Maximum daily dose is 20 mg per day. * Recommend patient SMBG at least 2 x per day. Should alternated times of day and keep a log for outpatient provider to follow up.
[2020-11-20] MEDS: LORazepam 1 MG/2 ML VIAL IV PRN ×2 (17:21→23:44)
--- NOTE | 2020-11-20 23:22 | Hospitalist Progress Note ---
Date of Service November 20, 2020 Assessment & Plan (1) Alcohol intoxication: History of long-term alcohol abuse: Recent admission to [facility] for alcohol intoxication. Reports he developed nausea, abdominal pain, could not drink alcohol anymore, was admitted to hospital with withdrawal symptoms, Was there for 2 days only, after returning home, patient found 3 more bottles of gin, finished all of them in 1 day, Past 2 to 3 days, has been having ongoing nausea, severe abdominal pain, vomiting, no blood in vomit, no dark stool, Was having confusion, tremors, Patient was treated with alcohol withdrawal protocol with Neurontin and as needed Ativan as per AWSS scale Continues to have tremors, withdrawal symptoms monitoring telemetry closely Patient is provide counseling for strict alcohol abstinence, willing to comply History lower option for outpatient counseling, not interested in going to inpatient rehab (2) Diabetes mellitus: History of type 2 diabetes, has not been taking any medication for years Continues to binge alcohol, Admitted with hyperglycemia, elevated beta- hydroxybutyrate- Appreciate pharmacy input from glycemic management Continued with insulin sliding scale while in hospital with basal Lantus Contrary to compliance issue patient will be discharged with p.o. antidiabetic medications Metformin Severe electrolyte imbalance: Corrected, continue to monitor Low mag, low K/low phos #2 alcohol abuse (3) Low magnesium level: (4) Abnormal LFTs: Secondary to alcoholic hepatitis Continue to follow lab (5) Tachyarrhythmia: Possibly secondary to severe dehydration, chronic alcohol abuse. Rate improved after IV fluid resuscitation, continue IV Ativan, gabapentin for withdrawal symptoms. CODE STATUS: Full code Disposition: Refused inpatient alcohol rehab Continue to monitor in telemetry for alcohol withdrawal symptoms Admission and Anticipated Discharge Date Admission Date: November 19, 2020 Subjective Visit for alcohol abuse, intoxication/withdrawal: Patient continued to required as needed Ativan for withdrawal symptoms, Awake and alert, reports that he is feeling episodes of withdrawal symptoms, hand tremors, symptoms gets better with as needed Ativan He is convinced that he is done with alcohol, does not want to go to that route again and No abdominal pain or discomfort no nausea vomiting In room air, no complaint of shortness of breath dyspnea on exertion no chest pain No fever or chills Review of Systems Review of Systems: All systems reviewed & are unremarkable except as noted in Subjective Physical Exam Physical Exam: Physical exam: General: Intoxicated, alert, oriented to person only /very tremulous, diaphoretic Heart: Tachycardic Lungs: Clear to auscultate, no wheeze or rales Abdomen: Soft /distended abdomen, normal bowel sound Extremity: No cyanosis, no deformity, Neuro: No focal neurological deficit noted, moving all limbs, Intoxicated Psych: Alert, oriented to person only flat affect Results & Data Results & Data ([facility]) Vital Signs (Past 12 Hours) Vital Signs Temp Pulse Pulse Resp BP BP Pulse Ox 11/20/20 19:35 36.8 C 69 18 152/81 H 96 11/20/20 17:38 76 11/20/20 16:29 36.6 C 75 20 168/91 H 93
[2020-11-21] MEDS: LORazepam 1 MG/2 ML VIAL IV PRN ×3 (06:01→21:08)
[2020-11-21] MEDS ORDERED: INSULIN GLARGINE SOLOSTAR 100 UNITS/ML 3 ML PEN SC SCH ×2 (09:00→21:00)
[2020-11-21] MEDS: GABAPENTIN 600 MG TAB PO SCH ×2 (09:09→21:08)
[2020-11-21] MEDS: ASPIRIN 81 MG ECTAB PO SCH (09:09)
[2020-11-21] MEDS: FOLIC ACID 1 MG TAB PO SCH (09:09)
[2020-11-21] MEDS: THIAMINE HCL 100 MG TAB PO SCH (09:10)
[2020-11-21] MEDS: INSULIN ASPART 100 UNITS/ML 3 ML PEN SC SCH ×4 (09:10→21:09)
--- NOTE | 2020-11-21 09:11 | Pharmacy Report ---
Pharmacy Glycemic Short Note 2 - Date of Service November 21, 2020 - Glycemic Short BSG Results (Last 24 hours): 11/20/20 11/20/20 11/20/20 11:25 16:27 16:43 POC Glucose 94 172 H 188 H 11/20/20 11/21/20 21:12 07:34 POC Glucose 129 H 189 H OUTPATIENT ANTIDIABETIC REGIMEN: * None * HbA1c = 9.1% (11/20/2020) ASSESSMENT: 11/21: * Mr. Carvajal received a total of 34 units of insulin yesterday * 15 units of basal + 19 units of bolus * BSGs were: 476-45-765-129 mg/dL, acceptable * Fasting BSG increased to 189 mg/dL indicating inadequate basal regimen * Will increase Lantus this AM, may add an HS scale pending BSG trend throughout the day 11/20: * 60 yo M admitted last evening secondary to alcohol intoxication. Pharmacy has been consulted for assistance with inpatient glycemic management. * Patient has a h/o T2DM and is non-compliant with all medications. He was admitted to [facility] in August 2020 for similar issues. His HbA1c at that time was 10.1%. He was prescribed Lantus 20 units SC HS upon discharge from hospital. Outpatient fill history indicates this was never picked up by patient. * BSG was 174 mg/dL at bedtime last night. Patient received 8 units of Novolog. No basal insulin was given. * Fasting BSG was elevated at 170 mg/dL today. Will start Lantus this AM. No change to Novolog at this time. PLAN FOR INPATIENT GLYCEMIC CONTROL: * Basal insulin - increased * Lantus 20 units SQ AM * Lantus 5-10 units SQ HS * Bolus insulin * NovoLog per scale ACHS or Q6hrs while NPO * Goal Range: Low 110 mg/dL - High 140 mg/dL * Correction Factor: 30 mg/dL/unit * Nutritional / Prandial insulin per carb ratio of 1 unit per 10 grams CHO consumed PLAN FOR DISCHARGE: * HbA1c = 9.1% from this admission. Goal HbA1c for this patient would be less than 7% given his age and comorbidities. * Avoid Metformin due to alcohol abuse * Because compliance and cost is an issue for this patient, upon discharge would recommend: * Glipizide ER 5 mg once daily with breakfast (or first meal of the day). May increase by 5 mg per week until goal HbA1c is reached unless patient is experiencing hypoglycemia. Maximum daily dose is 20 mg per day. * Recommend patient SMBG at least 1 x per day. Should alternate times of day and keep a log for outpatient provider to follow up.
--- NOTE | 2020-11-21 09:31 | Electrocardiogram Report ---
Test Reason : Blood Pressure : / mmHG Vent. Rate : 072 BPM Atrial Rate : 072 BPM P-R Int : 172 ms QRS Dur : 130 ms QT Int : 442 ms P-R-T Axes : 069 050 028 degrees QTc Int : 483 ms Poor data quality, interpretation may be adversely affected Normal sinus rhythm Right bundle branch block Abnormal ECG When compared with ECG of 20-NOV-2020 06:03, No significant change was found Confirmed by Mike Haas ([id number]) on 11/21/2020 9:31:00 AM Referred By: REFERRED SELF Confirmed By:Mike Haas
--- NOTE | 2020-11-21 16:35 | Hospitalist Progress Note ---
Date of Service November 21, 2020 Assessment & Plan (1) Alcohol intoxication: History of long-term alcohol abuse: Recent admission to [facility] for alcohol intoxication. Upon discharge from [facility], patient started to drink alcohol again Presented to [facility] ER with plane of ongoing nausea, severe abdominal pain, vomiting, no blood in vomit, no dark stool, Noted to have tremors, tachycardic hypertensive with signs and symptoms of alcohol withdrawal Patient was treated with alcohol withdrawal protocol with Neurontin and as needed Ativan as per AWSS scale Withdrawal symptoms, tremor has improved Patient is provide counseling for strict alcohol abstinence, willing to comply Not interested to go to inpatient rehab after discharge from hospital, willing to seek help in outpatient setting (2) Diabetes mellitus: History of type 2 diabetes, has not been taking any medication for years Continues to binge on alcohol, Admitted with hyperglycemia, elevated beta- hydroxybutyrate- Hemoglobin A1c 9 Blood sugar improved after starting on insulin sliding scale and basal Lantus Appreciate pharmacy input from glycemic management Patient will be discharged home with p.o. Metformin Will need close monitoring with family physician for glycemic management, Severe electrolyte imbalance: Low mag, low K/low phos #2 alcohol abuse Corrected, continue to monitor (3) Low magnesium level: (4) Abnormal LFTs: Secondary to alcoholic hepatitis Continues to improve (5) Tachyarrhythmia: Possibly secondary to severe dehydration, chronic alcohol abuse. Rate improved after IV fluid resuscitation, continue IV Ativan, gabapentin for withdrawal symptoms. CODE STATUS: Full code Disposition: Refused inpatient alcohol rehab Plan to discharge home in next 1 to 2 days, will need close follow-up with family physician for glycemic management, patient wants to follow-up with outpatient alcohol addiction program Admission and Anticipated Discharge Date Admission Date: November 19, 2020 Subjective Visit for alcohol abuse, intoxication/withdrawal: Patient reports he is feeling less agitated, anxious today, tremors has improved, Not having any tachycardic, hypertensive episode, Willing to seek outpatient help for alcohol addiction Review of Systems Review of Systems: All systems reviewed & are unremarkable except as noted in Subjective Physical Exam Physical Exam: Physical exam: General: No acute distress, alert awake oriented x3 HEENT: PERRLA, EOMI, Heart: Regular S1-S2, no carotid bruit, no JVD, no lower extremity edema Lungs: Clear to auscultate, no wheeze or rales Abdomen: Soft nontender, no organomegaly Extremity: No cyanosis, no deformity, n mild tremor noted on outstretched hands Neuro: No focal neurological deficit normal speech, normal visual field, Motor strength : normal both upper and lower extremity, sensation intact Psych: Alert awake oriented x3, normal affect Results & Data Results & Data ([facility]) Vital Signs (Past 12 Hours) Vital Signs Temp Pulse Pulse Resp BP BP Pulse Ox 11/21/20 16:05 36.8 C 77 18 128/87 95 11/21/20 15:45 68 11/21/20 12:04 36.6 C 80 20 167/82 H 96 11/21/20 08:19 36.4 C L 71 19 165/93 H 95 11/21/20 08:00 66
[2020-11-22 00:57] LABS: 7-Aminoclonaz, Confirm NEGATIVE ng/mL (<25); Hydro-Alp Ur, GC/MS NEGATIVE ng/mL (<25); Hydroxyethylflurazepam, Conf NEGATIVE ng/mL (<50); Hydroxymidazolam Ur, GC/MS NEGATIVE ng/mL (<50); Hydroxytriazolam NEGATIVE ng/mL (<50); Lorazepam, Ur GC/MS 107 ng/mL (<50); Nordiazepam, Confirm NEGATIVE ng/mL (<50); Oxazepam Ur, GC/MS NEGATIVE ng/mL (<50); Temazepam, Confirm 146 ng/mL (<50)
[2020-11-22] MEDS: GABAPENTIN 600 MG TAB PO SCH (08:37)
[2020-11-22] MEDS: ASPIRIN 81 MG ECTAB PO SCH (08:38)
[2020-11-22] MEDS: FOLIC ACID 1 MG TAB PO SCH (08:38)
[2020-11-22] MEDS: THIAMINE HCL 100 MG TAB PO SCH (08:39)
[2020-11-22] MEDS: INSULIN ASPART 100 UNITS/ML 3 ML PEN SC SCH ×4 (08:39→20:51)
[2020-11-22] MEDS: LORazepam 1 MG/2 ML VIAL IV PRN ×2 (08:40→14:18)
[2020-11-22] MEDS ORDERED: INSULIN GLARGINE SOLOSTAR 100 UNITS/ML 3 ML PEN SC SCH (09:00)
--- NOTE | 2020-11-22 09:03 | Pharmacy Report ---
Pharmacy Glycemic Short Note 2 - Date of Service November 22, 2020 - Glycemic Short BSG Results (Last 24 hours): 11/21/20 11/21/20 11/21/20 11:45 16:31 20:06 POC Glucose 118 H 124 H 123 H 11/22/20 07:37 POC Glucose 164 H OUTPATIENT ANTIDIABETIC REGIMEN: * None * HbA1c = 9.1% (11/20/2020) ASSESSMENT: 11/22: * Patient received a total of 51 units of insulin yesterday * 25 units basal + 26 units bolus * BSGs were: [phone] mg/dL, controlled * Fasting BSG improved this morning to 164 mg/dL * Continue with 25 units of basal daily * No change necessary to Novolog 11/21: * Mr. Carvajal received a total of 34 units of insulin yesterday * 15 units of basal + 19 units of bolus * BSGs were: 552-26-863-129 mg/dL, acceptable * Fasting BSG increased to 189 mg/dL indicating inadequate basal regimen * Will increase Lantus this AM, may add an HS scale pending BSG trend throughout the day 11/20: * 60 yo M admitted last evening secondary to alcohol intoxication. Pharmacy has been consulted for assistance with inpatient glycemic management. * Patient has a h/o T2DM and is non-compliant with all medications. He was admitted to [facility] in August 2020 for similar issues. His HbA1c at that time was 10.1%. He was prescribed Lantus 20 units SC HS upon discharge from hospital. Outpatient fill history indicates this was never picked up by patient. * BSG was 174 mg/dL at bedtime last night. Patient received 8 units of Novolog. No basal insulin was given. * Fasting BSG was elevated at 170 mg/dL today. Will start Lantus this AM. No change to Novolog at this time. PLAN FOR INPATIENT GLYCEMIC CONTROL: * Basal insulin * Lantus 25 units SQ AM * Bolus insulin * NovoLog per scale ACHS or Q6hrs while NPO * Goal Range: Low 110 mg/dL - High 140 mg/dL * Correction Factor: 30 mg/dL/unit * Nutritional / Prandial insulin per carb ratio of 1 unit per 10 grams CHO consumed PLAN FOR DISCHARGE: * HbA1c = 9.1% from this admission. Goal HbA1c for this patient would be less than 7% given his age and comorbidities. * Avoid Metformin due to alcohol abuse * Because compliance and cost is an issue for this patient, upon discharge would recommend: * Glipizide ER 5 mg once daily with breakfast (or first meal of the day). May increase by 5 mg per week until goal HbA1c is reached unless patient is ex periencing hypoglycemia. Maximum daily dose is 20 mg per day. * Recommend patient SMBG at least 1 x per day. Should alternate times of day and keep a log for outpatient provider to follow up. Follow up with PCP post discharge is essential.
--- NOTE | 2020-11-22 18:55 | Hospitalist Progress Note ---
Date of Service November 22, 2020 Assessment & Plan (1) Alcohol intoxication: History of long-term alcohol abuse: admitted with ETOH intoxication Recent admission to [facility] for alcohol intoxication. Upon discharge from [facility], patient started to drink alcohol again Presented to [facility] ER with complain of ongoing nausea, severe abdominal pain, vomiting, no blood in vomit, no dark stool, Noted to have tremors, tachycardic hypertensive with signs and symptoms of alcohol withdrawal Patient was treated with alcohol withdrawal protocol with Neurontin and as needed Ativan as per AWSS scale Withdrawal symptoms, tremor has improved Patient is provide counseling for strict alcohol abstinence, willing to comply Not interested to go to inpatient rehab after discharge from hospital, willing to seek help in outpatient setting (2) Diabetes mellitus: History of type 2 diabetes, has not been taking any medication for years Continues to binge on alcohol, Admitted with hyperglycemia, elevated beta- hydroxybutyrate- Hemoglobin A1c 9 Blood sugar improved after starting on insulin sliding scale and basal Lantus Appreciate pharmacy input from glycemic management Patient will be discharged home with p.o. Metformin Will need close monitoring with family physician for glycemic management, Severe electrolyte imbalance: Low mag, low K/low phos #2 alcohol abuse Corrected, continue to monitor (3) Low magnesium level: (4) Abnormal LFTs: Secondary to alcoholic hepatitis Continues to improve (5) Tachyarrhythmia: Possibly secondary to severe dehydration, chronic alcohol abuse. Rate improved after IV fluid resuscitation, continue IV Ativan, gabapentin for withdrawal symptoms. CODE STATUS: Full code Disposition: Refused inpatient alcohol rehab Plan to discharge home in next 1 to 2 days, will need close follow-up with family physician for glycemic management, patient wants to follow-up with outpatient alcohol addiction program Admission and Anticipated Discharge Date Admission Date: November 19, 2020 Subjective Visit for alcohol abuse, intoxication/withdrawal: able to walk on hallway , with no loss of balance tremor , anxiety has improved , no complain of SOB , or chest pain no cough or fever or chills Review of Systems Review of Systems: All systems reviewed & are unremarkable except as noted in Subjective Physical Exam Physical Exam: Physical exam: General: No acute distress, alert awake oriented x3 HEENT: PERRLA, EOMI, Heart: Regular S1-S2, no carotid bruit, no JVD, no lower extremity edema Lungs: Clear to auscultate, no wheeze or rales Abdomen: Soft nontender, no organomegaly Extremity: No cyanosis, no deformity, n mild tremor noted on outstretched hands Neuro: No focal neurological deficit normal speech, normal visual field, Motor strength : normal both upper and lower extremity, sensation intact Psych: Alert awake oriented x3, normal affect Results & Data Results & Data ([facility]) Vital Signs (Past 12 Hours) Vital Signs Temp Pulse Pulse Resp BP Pulse Ox 11/22/20 16:04 36.8 C 63 18 153/83 H 96 11/22/20 16:00 72 11/22/20 11:10 36.6 C 62 18 149/73 H 96 11/22/20 07:37 36.6 C 62 18 147/92 H 94 11/22/20 07:35 61
[2020-11-22] MEDS: LORazepam 2 MG/4 ML VIAL IV PRN (20:49)
[2020-11-23] MEDS: LORazepam 2 MG/4 ML VIAL IV PRN (05:57)
[2020-11-23] MEDS ORDERED: GABAPENTIN 600 MG TAB PO SCH (08:00)
[2020-11-23] MEDS: INSULIN ASPART 100 UNITS/ML 3 ML PEN SC SCH ×2 (08:34→13:04)
[2020-11-23] MEDS: FOLIC ACID 1 MG TAB PO SCH (08:46)
[2020-11-23] MEDS: ASPIRIN 81 MG ECTAB PO SCH (08:46)
[2020-11-23] MEDS: THIAMINE HCL 100 MG TAB PO SCH (08:46)
[2020-11-23] MEDS: LORazepam 1 MG/2 ML VIAL IV PRN ×2 (08:51→13:08)
[2020-11-23] MEDS ORDERED: INSULIN GLARGINE SOLOSTAR 100 UNITS/ML 3 ML PEN SC SCH (09:00)
--- NOTE | 2020-11-23 12:53 | Discharge Summary ---
Date of Service November 23, 2020 Admission HPI Per Admitting Provider This is a 59-year-old male with chronic alcohol abuse, drinks 1-2 bottles of gin every day, has been drinking for past 15-20 years, Never been of alcohol and off to get withdrawal symptoms, was in [facility] last week for alcohol intoxication/withdrawal, After discharge, patient went back drinking alcohol again: Was found to be disoriented, at roadside by police, was brought here, patient is very tachycardic, tremors, sweating Initial EKG showed rapid A. fib RVR with heart rate of 140s After receiving Ativan, IV fluids, repeat EKG shows normal sinus rhythm with sinus tachycardia. LFTs elevated, During my interview, patient was oriented to person only, has ongoing tremors, Says that he has been dealing with his alcoholism for years, was so sober for for 5 years, started to drink again since July this year. Denies of any illicit drug abuse, no IV drugs. Patient has not been seeing any family physician for years Supposed to follow-up with Dr. Dale at [facility], never showed up to any of the appointments. Diagnosed with diabetes years ago, has not been taking any meds Blood sugar elevated 300 with elevated beta hydroxybutyrate, Normal anion gap, normal bicarb level. LFTs elevated suggestive of alcoholic hepatitis Admission Exam Per Admitting Provider Physical exam: General: Intoxicated, alert, oriented to person only /very tremulous, diaphoretic Heart: Tachycardic Lungs: Clear to auscultate, no wheeze or rales Abdomen: Soft /distended abdomen, normal bowel sound Extremity: No cyanosis, no deformity, Neuro: No focal neurological deficit noted, moving all limbs, Intoxicated Psych: Alert, oriented to person only flat affect Principal Diagnosis alcohol withdrawal alcohol abuse Discharge Exam CONSTITUTIONAL: WNWD, vitals as above, generally well-appearing, whole body essential tremor present to a mild degree-chronic per patient EYES: normal conjunctivae, no scleral icterus ENT: external ear and nose normal, MMM RESPIRATORY: clear to auscultation bilaterally, no crackles, rales or wheezes, normal respiratory effort CARDIOVASCULAR: regular rate and rhythm, S1 and 2 heard without murmurs, gallops or rubs, no JVD, no peripheral edema GASTROINTESTINAL: soft, nontender, nondistended MUSCULOSKELETAL: strength 5/5 throughout, head is normocephalic and atraumatic SKIN: warm and dry NEUROLOGIC: CN 2-12 grossly intact, normal cognition, normal speech, no gross focal deficits. PSYCHIATRIC: alert cooperative and oriented to person, place and time. Discharge Data Allergies Allergy/AdvReac Type Severity Reaction Status Date / Time cat dander Allergy Intermediate ITCHY Verified 11/19/20 16:11 EYES, SNEEZING, CONGESTION Ordered Studies Laboratory Results WBC 6.48 K/uL (4.8-10.8) 11/19/20 15:34 RBC 4.95 M/uL (4.7-6.1) 11/19/20 15:34 Hgb 15.7 g/dL (14.0-18.0) 11/19/20 15:34 Hct 44.7 % (42-52) 11/19/20 15:34 MCV 90.3 fL (80-100) 11/19/20 15:34 MCH 31.7 pg (25-34) 11/19/20 15:34 MCHC 35.1 g/dL (32-36) 11/19/20 15:34 RDW Std Deviation 46.9 fL (36.4-46.3) H 11/19/20 15:34 RDW Coeff of Amara 14.3 % (11.5-14.5) 11/19/20 15:34 Plt Count 167 K/uL (130-400) 11/19/20 15:34 MPV 11.2 fL (7.4-10.4) H 11/19/20 15:34 Immature Gran % (Auto) 0.2 % 11/19/20 15:34 Neut % (Auto) 57.7 % 11/19/20 15:34 Lymph % (Auto) 27.2 % 11/19/20 15:34 [place] % (Auto) 12.7 % 11/19/20 15:34 Eos % (Auto) 1.9 % 11/19/20 15:34 Baso % (Auto) 0.3 % 11/19/20 15:34 Neut # (Auto) 3.75 K/uL (1.4-6.5) 11/19/20 15:34 Lymph # (Auto) 1.76 K/uL (1.2-3.4) 11/19/20 15:34 [place] # (Auto) 0.82 K/uL (0.11-0.59) H 11/19/20 15:34 Eos # (Auto) 0.12 K/uL (0-0.5) 11/19/20 15:34 Baso # (Auto) 0.02 K/uL (0-0.2) 11/19/20 15:34 Immature Gran # (Auto) 0.01 K/uL (0.00-0.02) 11/19/20 15:34 PT 10.6 Seconds (9.0-12.0) 11/19/20 15:34 INR 1.0 (0.9-1.1) 11/19/20 15:34 APTT 24.5 Seconds (21.0-31.0) 11/19/20 15:34 PTT Ratio 0.9 11/19/20 15:34 Sodium 138 mmol/L (136-145) 11/20/20 06:36 Potassium 3.9 mmol/L (3.5-5.1) 11/20/20 06:36 Chloride 103 mmol/L (98-107) 11/20/20 06:36 Carbon Dioxide 31 mmol/L (21-32) 11/20/20 06:36 Anion Gap 4.0 (3-11) 11/20/20 06:36 BUN 8 mg/dl (7-18) 11/20/20 06:36 Creatinine 0.63 mg/dl (0.6-1.4) 11/20/20 06:36 Est Cr Clr Drug Dosing 125.5 ml/min 11/20/20 06:36 Est GFR ( Amer) 122.4 11/20/20 06:36 Est GFR (Non-Af Amer) 105.6 11/20/20 06:36 BUN/Creatinine Ratio 12.4 (10-20) 11/20/20 06:36 Glucose 177 mg/dl (70-99) H 11/20/20 06:36 POC Glucose 177 mg/dl (70-99) H 11/23/20 11:39 Estimat Average Glucose 214 mg/dl 11/20/20 06:36 Hemoglobin A1c 9.1 % (4.5-5.6) H 11/20/20 06:36 Calcium 8.6 mg/dl (8.5-10.1) 11/20/20 06:36 Phosphorus 3.0 mg/dl (2.5-4.9) 11/20/20 06:36 Magnesium 1.9 mg/dl (1.8-2.4) 11/20/20 06:36 Total Bilirubin 1.2 mg/dl (0.2-1) H D 11/20/20 06:36 AST 31 U/L (15-37) 11/20/20 06:36 ALT 57 U/L (12-78) 11/20/20 06:36 Alkaline Phosphatase 74 U/L (45-117) 11/20/20 06:36 Troponin I < 0.015 ng/ml (0-0.045) 11/19/20 15:34 Total Protein 6.5 gm/dl (6.4-8.2) 11/20/20 06:36 Albumin 2.9 gm/dl (3.4-5.0) L 11/20/20 06:36 Globulin 3.6 gm/dl (2.5-4.0) 11/20/20 06:36 Albumin/Globulin Ratio 0.8 (0.9-2) L 11/20/20 06:36 Lipase 91 U/L (73-393) 11/19/20 15:34 Beta-Hydroxybutyric Acd 4.73 mg/dl (0.2-2.81) H 11/19/20 15:34 TSH 0.847 uIu/ml (0.300-4.500) 11/19/20 15:34 Urine Color Yellow 11/19/20 17:48 Urine Appearance Clear (Clear) 11/19/20 17:48 Urine pH 6.5 (4.5-7.5) 11/19/20 17:48 Ur Specific [place] 1.019 (1.000-1.030) 11/19/20 17:48 Urine Protein Negative (Negative) 11/19/20 17:48 Urine Glucose (UA) 3+ (Negative) H 11/19/20 17:48 Urine Ketones 1+ (Negative) H 11/19/20 17:48 Urine Blood Negative (Negative) 11/19/20 17:48 Urine Nitrite Negative (Negative) 11/19/20 17:48 Urine Bilirubin Negative (Negative) 11/19/20 17:48 Urine Urobilinogen Negative (Negative) 11/19/20 17:48 Ur Leukocyte Esterase Negative (Negative) 11/19/20 17:48 Urine Opiates Screen Neg (Neg) 11/19/20 17:48 Ur Methadone, Qual Neg (Neg) 11/19/20 17:48 Urine Barbiturates Neg (Neg) 11/19/20 17:48 Ur Phencyclidine (PCP) Neg (Neg) 11/19/20 17:48 U Amphetamin/Meth Scrn Neg (Neg) 11/19/20 17:48 MDMA (Ecstasy) Screen Neg (Neg) 11/19/20 17:48 U OH-Alprazolam Confrm NEGATIVE ng/mL (<25) 11/19/20 17:48 U Benzodiazepines Scrn Pos (Neg) H 11/19/20 17:48 7-Amino Clonazepam NEGATIVE ng/mL (<25) 11/19/20 17:48 Ur Nordiazepam Confirm NEGATIVE ng/mL (<50) 11/19/20 17:48 U OH-ethylflurazepam NEGATIVE ng/mL (<50) 11/19/20 17:48 U Lorazepam Cnf GC/MS 107 ng/mL (<50) H 11/19/20 17:48 U Oxazepam Confm GC/MS NEGATIVE ng/mL (<50) 11/19/20 17:48 Ur Temazepam Confirm 146 ng/mL (<50) H 11/19/20 17:48 U OH-Triazolam Confirm NEGATIVE ng/mL (<50) 11/19/20 17:48 U OH-Midazolam Confirm NEGATIVE ng/mL (<50) 11/19/20 17:48 Ur Cocaine Metabolite Neg (Neg) 11/19/20 17:48 U Marijuana (THC) Screen Neg (Neg) 11/19/20 17:48 Drug Screen Comment SEE NOTE 11/19/20 17:48 Ethyl Alcohol mg/dL 58.0 mg/dl (0-3) H 11/19/20 15:34 Lyme Disease IgG Ab Negative (Negative) 11/19/20 15:34 Lyme Disease IgM Ab Negative (Negative) 11/19/20 15:34 COVID-19 Eval Order CovFluRsv at [facility] 11/19/20 16:52 SARS-CoV-2 (PCR) NEGATIVE (Negative) 05/02/21 16:52 Influenza Type A (PCR) Negative (Neg) 11/19/20 16:52 Influenza Type B (PCR) Negative (Neg) 11/19/20 16:52 RSV (RT-PCR) Negative (Neg) 11/19/20 16:52 Impressions Chest X-Ray 11/19/20 15:23 XR chest 1V portable HISTORY: 60 years-old Male ETOH w/d. Afib with RVR acute atrial fibrillation. Acute atypical chest pain COMPARISON: None TECHNIQUE: Portable AP view of the chest FINDINGS: Cardiomediastinal and hilar silhouettes are within normal limits. Mild interstitial coarsening of the lung bases, likely chronic. No pneumothorax, pleural effusion, airspace consolidation or overt pulmonary edema. Degenerative changes of the shoulders and spine. IMPRESSION: No acute process. ACT 112: Negative or not required by law. The above report was generated using voice recognition software. It may contain grammatical, syntax or spelling errors. Electronically signed by: Dayron Warner M.D. 11/19/2020 4:09 PM Diabetes Follow up Diabetes Follow-up Needed for HgbA1c >9% Hospital Course (1) Alcohol intoxication: (2) Low magnesium level: (3) Alcohol abuse: (4) Tobacco use: The patient is a 60-year-old alcoholic man who presented to the ER intoxicated and tremulous and diaphoretic. Heart rate was elevated in the 140s to 150s thought secondary to severe dehydration and chronic alcohol use. He was given IV fluids, IV Ativan and gabapentin for alcohol withdrawal symptoms. He had a mildly elevated transaminitis likely secondary to alcohol use and his magnesium was low and replaced. He was admitted to hospitalist service and continued on therapy for the next few days. He continued to improve on Neurontin and as needed Ativan. His magnesium was corrected into the normal range. As he had a history of alcohol intoxication with recent discharge from [facility], we discussed rehab options. He is not interested in inpatient rehab in the setting of Covid and required social distancing and masking. Therefore, he is open to alcoholics anonymous and has contacted a local group in [place]. Continued counseling for underlying anxiety was strongly encouraged. Complete cessation from alcohol and tobacco products was recommended. At time of discharge she was hemodynamically stable and afebrile and tolerating p.o. He was mentating and ambulating at baseline and oxygenating well on room air he was sent home in stable condition with close primary care follow-up recommended. Total Time Total Time Spent Total Time Spent (In Minutes): 60 Total Time Includes: Examination of the Patient, Discharge Planning, Medication Reconciliation and Communication With Other Providers Discharge Plan Discharge Items Patient Disposition: Home - Self-Care Reason For Visit: ALCOHOL WITHDRAWL Discharge Diagnosis: alcohol withdrawal alcohol abuse Condition on Discharge: Good Activity: Resume your previous activity Non-emergency contact: Primary Care Provider Call non-emergency contact if: you have any medication questions and your symptoms worsen Follow-up/Referrals: Luis Enrique Montana MD [Primary Care Provider] - (Date & Time 11/27/2020 3:00 PM Provider Luis Enrique Montana MD Department Family Medicine [facility] ) Diet: Carb Consistent or DM2 Addtl Attending Provider Instructions: It is strongly advised that you COMPLETELY AVOID ALCOHOL. Please consider continuing with AA meetings and counseling for alcohol abuse and anxiety as we discussed. It is strongly advised that you quit using tobacco, especially smoking, as this may increase your risk for a heart attack or stroke and is terrible for your health. It is recommended that you follow-up with your primary care physician at the date and time above. This will be important to ensure you are still doing well after discharge and have all the referrals in place you need to continue with your alcohol rehabilitation efforts. It was a pleasure taking care of you! Please call if you have any questions or problems. You can reach a [facility] hospitalist on duty at [facility] 24 hours a day by calling [phone]. Take care of yourself. Haley Mcneal DO [facility] Pending Studies at Discharge: No Stand-Alone Forms: My [facility], Smoking Cessation Medications and DC Order Prescriptions: No Action No Known Home Medications RF: 0 Discharge Orders: Discharge Order (Routine); Ordered 11/23/20 Ordered By: Haley Mcneal Admission Data Admit Date/Time: 11/19/20 18:13 Attending Provider: Haley Mcneal Admit Provider: Mae Mercado Primary Care Provider: Luis Enrique Montana Other Interventions: Discharge Summary Assessment (RN) Last Done: 11/23/20 13:50
== END 2020-11-23 15:08 | disposition home or self-care (01) | DRG 897 ==
LOC: ED 15:02 → 2S 18:13 → SUATTDRO 18:13 → 2S 19:54

== ENCOUNTER 2023-11-03 14:08 | Inpatient (IN) ==
[2023-11-03 15:11] LABS: Basophils # (auto) 0.05 K/uL (0.00-0.20); Basophils % (auto) 0.4 %; Eosinophils # (auto) 0.44 K/uL (0.00-0.50); Eosinophils % (auto) 3.7 %; Hematocrit (blood only) 42.4 % (42.0-52.0); Hemoglobin 14.1 g/dl (14.0-18.0); Immature Granulocytes # (auto) 0.04 K/uL (0.01-0.20); Immature Granulocytes % (auto) 0.3 %; Lymphocytes # (auto) 1.39 K/uL (1.20-3.40); Lymphocytes % (auto) 11.6 %; Mean Corpuscular Hgb Conc 33.3 g/dL (32.0-36.0); Mean Corpuscular Volume 87.2 fL (80.0-100.0); Mean Platelet Volume 11.8 fL (9.4-12.4); Monocytes # (auto) 1.47 K/uL (0.11-0.59); Monocytes % (auto) 12.2 %; Neutrophils # (auto) 8.62 K/uL (1.40-6.50); Neutrophils % (auto) 71.8 %; Platelet Count 211 K/uL (130-400); RDW Coefficient of Variation 13.2 % (11.5-14.5); RDW Standard Deviation 42.1 fL (36.4-46.3); Red Blood Count 4.86 M/uL (4.70-6.10); White Blood Count 12.01 K/ul (4.8-10.8)
--- NOTE | 2023-11-03 15:26 | Emergency Department Note ---
Impression & Plan Diverticulitis of large intestine with abscess, Leukocytosis, Acute hyponatremia ED Provider Note NAME: SVETA IRVIN AGE: 63 SEX: M : 1960 ARRIVES VIA: Walk-In INFORMANT: Patient ED PROVIDER(S): Harris Medina DO CHIEF COMPLAINT: abdominal pain HPI: Patient is a 63-year-old male with a past medical history of alcoholism, tobacco abuse and diabetes who presents the ER for left lower quadrant abdominal pain. She admits to a previous appendectomy about 2 years ago. In July of this year he had a hernia repair done. He notes that he has been having some pain in the left lower quadrant for some time but is significant worsened over the past 2 weeks. He denies any nausea or vomiting. He has been more constipated than usual. No headaches or change in vision. No chest pain or shortness of breath. No dysuria urgency or frequency. No other exacerbating or remitting factors. ADDITIONAL HISTORY OBTAINED: Per HPI Chronic Medical/Social Conditions Affecting Care: Per HPI PAST MEDICAL HISTORY:See Below PAST SURGICAL HISTORY:See Below FAMILY HISTORY:See Below SOCIAL HISTORY:See Below HOME MEDICATIONS:See Below ALLERGIES:See Below VITALS:See Below PHYSICAL EXAMINATION: GENERAL: Sitting up in bed, alert, well appearing, well nourished, no distress, non-toxic EYE EXAM: normal conjunctiva. OROPHARYNX: mucous membranes are moist NECK: supple, no nuchal rigidity, no adenopathy, non-tender LUNGS: Clear to auscultation. Normal chest wall mechanics HEART: no murmurs, S1 normal and S2 normal ABDOMEN: abdomen soft, non-tender, normo-active bowel sounds, no masses, no rebound or guarding. UPPER EXTREMITIES: upper extremities are grossly normal. LOWER EXTREMITIES: No pitting edema. NEURO EXAM: Normal sensorium, cranial nerves II-XII grossly intact, normal speech, no gross weakness of arms, no gross weakness of legs. MEDICAL DECISION MAKING: Patient is a 63-year-old male with past medical history of diabetes, tobacco abuse and alcohol use who presents ER for left lower quadrant abdominal pain which has been present and worsening for the past [address] was obtained as an outpatient/external records were reviewed as it showed and showed diverticulitis with multiloculated abscess. Discussed case with general surgery they saw and evaluate the patient. They recommend admission and agree with IV antibiotics and evaluation by the hospitalist. Labs showed mild leukocytosis of 12,000. No significant anemia. Discussed with the hospitalist patient was admitted for further workup. Lactate was normal. LFTs bilirubin was remarkable for a mild hyponatremia. Consults/Care Managements Discussions: Per [facility] Triage Nursing notes reviewed. Limited review of prior medical records performed Vital Signs: reviewed and remarkable for no significant abnormalities Differential diagnosis: Differential diagnoses includes but is not limited to gastritis, peptic ulcer disease, GERD, gallbladder disease, pancreatitis, small bowel obstruction, appendicitis, diverticulitis, hernia, urinary tract infection, torsion, perforation, trauma, infectious. ER treatment provided: See below Diagnostics interpreted by me include EKG and cardiac monitoring as listed below: -Cardiac Monitoring: An order was placed for continuous cardiac monitoring. The monitor shows a rate of 80 with sinus rhythm. -ECG: none -Laboratory studies:Interpreted by me as stated above in MDM and shown below. Imaging studies: Xrays: As interpreted by me:none CTs show: External records were reviewed in regards to CT performed earlier today which showed diverticulitis with an abscess Procedures:none Critical Care: None Past Med/Surg History Medical History Alcoholism Alcohol withdrawal Tachyarrhythmia Abnormal LFTs Low magnesium level Diabetes mellitus Alcohol intoxication Diabetes Surgical History Status post hernia repair Status post appendectomy Social History Smoking Status: Former smoker Tobacco Type: Smokeless Tobacco (Dip or Chew) Cigarettes Per Day: 1 pack/day; Do You Dip or Chew Tobacco: Yes; Hx Alcohol Use: Yes Alcohol type: beer Hx Substance Use: No Preferred Language: Tamazight Communication Ability: Effective 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 Required: No Beliefs That Will Affect Care: None Current Living Situation: Alone Current Living Situation Comment: Lives at home alone independently Other Information That Helps Us Care for You: No Feels Safe at Home: Yes Safety Concerns: Feels Safe At This Time Assistive Devices: Glasses Allergies Allergies Allergy/AdvReac Type Severity Reaction Status Date / Time cat dander Allergy Intermediate ITCHY Verified 11/03/23 15:32 EYES, SNEEZING, CONGESTION Home Meds Home Medications Medication Instructions Recorded Confirmed No Known Home Medications 03/23/20 11/03/23 Results & Data (ED) Vital Signs Vital Signs - 24 hr 11/03/23 14:17 11/03/23 16:01 Temperature 37.1 C Temperature Source Temporal Artery Scan Pulse Rate 82 Pulse Rate from SpO2 Sensor 81 Respiratory Rate 20 Respiratory Effort / Characteristics Non-Labored Spontaneous Respiratory Depth Normal Blood Pressure 164/84 H 146/75 H Blood Pressure Mean 110 98 Pulse Oximetry 94 96 Oxygen Delivery Method Room Air Room Air Sepsis New/Unexplained Change in Mental Status No Sepsis Action Taken by Nursing No Action Required Laboratory Data 11/03/23 14:43 11/03/23 14:43 Lab Results 11/03/23 Range/Units 14:43 WBC 12.01 H (4.8-10.8) K/ul RBC 4.86 (4.70-6.10) M/uL Hgb 14.1 (14.0-18.0) g/dl Hct 42.4 (42.0-52.0) % MCV 87.2 (80.0-100.0) fL MCH 29.0 (25.0-34.0) pg MCHC 33.3 (32.0-36.0) g/dL RDW Std Deviation 42.1 (36.4-46.3) fL RDW Coeff of Amara 13.2 (11.5-14.5) % Plt Count 211 (130-400) K/uL MPV 11.8 (9.4-12.4) fL Immature Gran % (Auto) 0.3 % Neut % (Auto) 71.8 % Lymph % (Auto) 11.6 % [place] % (Auto) 12.2 % Eos % (Auto) 3.7 % Baso % (Auto) 0.4 % Neut # (Auto) 8.62 H (1.40-6.50) K/uL Lymph # (Auto) 1.39 (1.20-3.40) K/uL [place] # (Auto) 1.47 H (0.11-0.59) K/uL Eos # (Auto) 0.44 (0.00-0.50) K/uL Baso # (Auto) 0.05 (0.00-0.20) K/uL Immature Gran # (Auto) 0.04 (0.01-0.20) K/uL Sodium 134 L (136-145) mmol/L Potassium 3.8 (3.5-5.1) mmol/L Chloride 99 (98-107) mmol/L Carbon Dioxide 27 (21-32) mmol/L Anion Gap 8 (3-11) BUN 16 (6-23) mg/dl Creatinine 0.98 (0.6-1.4) mg/dl Est Cr Clr Drug Dosing 77.6 ml/min Est GFR ( Amer) 93.4 ml/min Est GFR (Non-Af Amer) 80.6 ml/min BUN/Creatinine Ratio 16.3 (10-20) Glucose 184 H (70-99(Fasting)) mg/dl Lactate 1.5 (0.4-2.0) mmol/L Calcium 9.2 (8.6-10.3) mg/dl Total Bilirubin 0.5 (0.2-1.0) mg/dl AST 16 (13-39) U/L ALT 13 (7-52) U/L Alkaline Phosphatase 81 (34-104) U/L Total Protein 8.1 (6.0-8.3) gm/dl Albumin 4.0 (3.4-5.0) gm/dl Globulin 4.1 H (2.5-4.0) gm/dl Albumin/Globulin Ratio 1.0 (0.9-2) Lipase 22 (11-82) U/L Administered Medications Lactated Ringer's (Lr) 1,000 mls @ 125 mls/hr IV .Q8H [facility] Stop: 12/03/23 18:19 Last Admin: 11/03/23 18:30 Dose: 125 mls/hr Documented By: TRENTM Discontinued Medications Piperacillin Sod/Tazobactam Sod (Zosyn) 4.5 gm in 100 mls @ 200 mls/hr IV NOW ONE Stop: 11/03/23 14:54 Last Infusion: 11/03/23 16:22 Dose: Infused Documented By: Admin: 11/03/23 15:52 Dose: 200 mls/hr Documented By: KMO Discharge Plan Visit Data Chief Complaint: Abdominal Pain Stated Complaint: LOWER ABD PAIN ED Provider: Harris Medina Discharge Problem: Diverticulitis of large intestine with abscess, Leukocytosis, Acute hyponatremia Patient Disposition: Admitted As Inpatient Discharge Instructions Interventions: ED Discharge Assessment Last Done: 11/03/23 18:07 Discharge Problem: Diverticulitis of large intestine with abscess Qualifiers: Diverticulitis bleeding: unspecified bleeding status Qualified Code(s): K57.20 - Diverticulitis of large intestine with perforation and abscess without bleeding Leukocytosis Qualifiers: Leukocytosis type: unspecified Qualified Code(s): D72.829 - Elevated white blood cell count, unspecified
[2023-11-03 15:30] LABS: BUN Creatinine Ratio 16.3 (10-20); Bilirubin,Total 0.5 mg/dl (0.2-1.0); Calcium 9.2 mg/dl (8.6-10.3); Creatinine Clr Calc Pharmacy 77.6 ml/min; Est GFR (African American) 93.4 ml/min; Est GFR (Non-African American) 80.6 ml/min; Globulin 4.1 gm/dl (2.5-4.0); Potassium 3.8 mmol/L (3.5-5.1); Total Protein 8.1 gm/dl (6.0-8.3)
--- NOTE | 2023-11-03 15:44 | Surgery Consultation ---
Date of Consultation November 03, 2023 Assessment & Plan (1) Diverticulitis of large intestine with abscess: Patient is a 63 yo male with complaint of a 2 week history of left lower quadrant abdominal pain that had been progressively getting worse. He had an outpatient abdominal/pelvis CT scan that is reading a pericolonic abscess and was advised to come to the ER. Patient reports pain is currently a 1/10 and becomes worse with exercise. On exam abdomen is non distended, soft TTP in LLQ. WBC 12, VSS, afebrile. CT scan from today readin. Interval increase in size in the now 3.4 x 2.3 cm multiloculated cystic collection with surrounding inflammation within the left paracolic gutter. This abuts the thickened posterior wall of the mid descending colon. This favors a multiloculated pericolonic abscess in the setting of an acute diverticulitis. An underlying neoplastic process would be difficult to exclude. Therefore, follow-up to resolution recommended. The patient had a CT scan from 08/2023 taken to evaluate his post operative seroma and incidentally noted a : indeterminant 2.3 cm nodule in the left paracolic gutter with surrounding inflammation and fluid. Recommending: Admit to medicine Contacted IR for possible drainage, however they feel it is too small at this point to drain. Consult GI IV Fluids for hydration IV antiemetic PRN IV antibiotics IV analgesic PRN Urine sample collected in ER and sent for culture Discussed case with Dr. Mathew application integration specialist surgeon, will continue to follow while inhouse. Supervising Physician Co-Signing Physician Notes I personally saw and evaluated the patient with Anna Marie OLSEN and agree with the assessment and plan 63 yo male with diverticulitis and small pericolonic abscess Admitted to medicine No plans for surgical intervention IR consult placed, area to small to drain NPO History of Present Illness Reason for Consultation: pericolonic abscess Requesting Physician: Dr. Medina History of Present Illness Patient is a pleasant 63 yo male with PMH alcoholism, diabetes, Parkinson disease, that presented to his PCP 10/31/23 with complaint of a 2 week history of left lower quadrant abdominal pain that had been progressively getting worse. Reports he has been feeling "off and not himself the past few days". He had an outpatient abdominal/pelvis CT scan that is reading a pericolonic abscess and was advised to come to the ER. Patient reports pain is currently a 1/10 and becomes worse with exercise. He denies fever, CP, SOB, reports some mild chills off and on. No nausea or vomiting. Has some burning with urination and reports increase in frequency of urination with abdominal pain. Reports bowel movements have been every other day without difficulty. Currently is not taking any medication and has been alcohol free for over a year. Has a history of an appen dectomy/cecectomy in 2022, and a ventral hernia repair 07/2023 with a post operative seroma. Has never had a colonoscopy and denies known history of diverticulosis. Allergies Allergy/AdvReac Type Severity Reaction Status Date / Time cat dander Allergy Intermediate ITCHY Verified 11/03/23 15:32 EYES, SNEEZING, CONGESTION Home Medications Medication Instructions Recorded Confirmed Type No Known Home Medications 03/23/20 11/03/23 History Patient History Medical History Alcoholism Alcohol withdrawal Tachyarrhythmia Abnormal LFTs Low magnesium level Diabetes mellitus Alcohol intoxication Diabetes Surgical History Status post hernia repair Status post appendectomy Social History Smoking Status: Former smoker Tobacco Type: Smokeless Tobacco (Dip or Chew) Cigarettes Per Day: 1 pack/day; Do You Dip or Chew Tobacco: Yes; Hx Alcohol Use: Yes Alcohol type: beer Hx Substance Use: No Preferred Language: Latvian Communication Ability: Effective Slip Dumper Required: No Beliefs That Will Affect Care: None Current Living Situation: Alone Current Living Situation Comment: Lives at home alone independently Other Information That Helps Us Care for You: No Feels Safe at Home: Yes Safety Concerns: Feels Safe At This Time Assistive Devices: None Review of Systems Constitutional: + chills and + fatigue; no fever Eyes: + corrective lenses Ear, Nose, Mouth, Throat: no hearing loss Respiratory: no dyspnea Cardiovascular: no chest pain Gastrointestinal: + abdominal pain; no nausea and no vomit ing Genitourinary: + dysuria and + urinary frequency Musculoskeletal: + body aches Integumentary: no rash Psychiatric: no confusion Physical Exam Physical Exam: alert oriented Constitutional: cooperative and comfortable; no acute distress Respiratory: normal respiratory effort and able to speak in complete sentences; no respiratory distress Cardiovascular: Rate/Rhythm: regular rate Gastrointestinal (Abdomen): Inspection/Auscultation: + abdominal surgical scar; abdomen not distended Percussion/Palpation: + abdomen tender and abdomen soft; no guarding and abdomen not rigid Skin: no rashes, warm and dry Neurologic: Motor/Sensory: + tremor Psychiatric: A+Ox3, euthymic affect Results & Data Vital Signs (Past 12 Hours) Vital Signs Temp Pulse Resp BP Pulse Ox O2 Del Method 11/03/23 14:17 98.8 F 82 20 164/84 H 94 Room Air Diagnostic Findings [place], [place] [phone] CT Scan Report Patient: SVETA IRVIN Admit Date: 11/03/23 MR#: [id number] Address1: [address] [place] [address] Acct ID:[id number] Address2: Date: 1960 [facility] Zip: [place] [address] Age: 63 Location: CT Sex: M Room/Bed: Att Phy: Miguel Beauchamp CRNP Diagnosis: LLQ abd pain / ? Divertic Emmy Phy: Miguel Beauchamp CRNP Service Date: 11/03/23 [facility] Phy: Interpreting Phy: Nam Simpson MDAdmit Phy: Ordering Phy: Miguel Beauchamp CRNP cc: ~ ABDOMEN AND PELVIS CT WITH IV CONTRAST CT DOSE: 1208.5 mGy.cm HISTORY: LLQ abd pain / ? Divertic TECHNIQUE: Multiaxial CT images of the abdomen and pelvis were performed following the use of intravenous contrast. A dose lowering technique was utilized adhering to the principles of ALARA. COMPARISON STUDY: Abdomen and pelvis CT 09/04/2023. FINDINGS: Increase in size in a multiloculated fluid collection within the left paracolic gutter which abuts the adjacent descending colon and abdominal wall. This is best seen on images 150 through 180 and measures approximately 3.4 x 2.3 cm. This demonstrates a thickened wall with surrounding inflammatory change. This favors a multiseptated pericolonic abscess. A necrotic neoplastic process is considered less likely but remains in the differential diagnosis. This previously measured approximately 2.3 cm. This abuts the thickened posterior wall of the descending colon and therefore favors an acute diverticulitis with pericolonic abscess. Multiple additional scattered colonic diverticula are again noted. Right anterior abdominal wall mesh is again noted. The fluid collection within the mesh from the prior study has essentially resolved in the interval. A few bibasilar linear densities consistent with subsegmental atelectasis. No pneumoperitoneum. No pneumatosis. No acute fractures identified. There is an old mild anterior wedge-shaped compression deformity at L1, unchanged. Subtle nodular contour to the liver suggestive of early cirrhosis. No hepatic masses. The main portal vein is patent. Multiple small gallstones are noted. No gallbladder wall thickening. The pancreas, spleen, and adrenal glands are unremarkable. There is a punctate left renal stone. No right renal calculi. Left cortical renal scarring again noted. No ureteral stones. No hydronephrosis. Normal caliber abdominal aorta. No retroperitoneal or pelvic lymphadenopathy. Bladder wall thickening is noted. This may be due to underdistention. IMPRESSION: 1. Interval increase in size in the now 3.4 x 2.3 cm multiloculated cystic collection with surrounding inflammation within the left paracolic gutter. This abuts the thickened posterior wall of the mid descending colon. This favors a multiloculated pericolonic abscess in the setting of an acute diverticulitis. An underlying neoplastic process would be difficult to exclude. Therefore, follow- up to resolution recommended. 2. Cholelithiasis. 3. Left-sided nephrolithiasis. 4. Cirrhosis. 5. Additional findings as described above. ACT 112: Negative or not required by law. Electronically signed by: Nam Simpson M.D. 11/03/2023 10:02 AM Dictated: 11/03/23 0953 Transcribed: 11/03/23 0953 Results CMP Results: Na 135 mmol/L (136-145) L 11/04/23 K 3.8 mmol/L (3.5-5.1) 11/04/23 Cl 102 mmol/L (98-107) 11/04/23 CO2 26 mmol/L (21-32) 11/04/23 Anion Gap 7 (3-11) 11/04/23 BUN 11 mg/dl (6-23) 11/04/23 Creatinine 0.79 mg/dl (0.6-1.4) 11/04/23 Estimated GFR ( Amer) 109.2 ml/min 11/04/23 Estimated GFR (Non-Af Amer) 94.2 ml/min 11/04/23 BUN/Creatinine Ratio 13.9 (10-20) 11/04/23 Glu 178 mg/dl (70-99(Fasting)) H 11/04/23 Ca 8.8 mg/dl (8.6-10.3) 11/04/23 Phosphorus Level 3.0 mg/dl (2.5-4.9) 11/20/20 Total Bilirubin 0.5 mg/dl (0.2-1.0) 11/03/23 AST 16 U/L (13-39) 11/03/23 ALT 13 U/L (7-52) 11/03/23 Alkaline Phosphatase 81 U/L (34-104) 11/03/23 TP 8.1 gm/dl (6.0-8.3) 11/03/23 Albumin 4.0 gm/dl (3.4-5.0) 11/03/23 Globulin 4.1 gm/dl (2.5-4.0) H 11/03/23 Albumin/Globulin Ratio 1.0 (0.9-2) 11/03/23 Results Complete Blood Count Results: RBC 4.64 M/uL (4.70-6.10) L 11/04/23 WBC 10.25 K/ul (4.8-10.8) 11/04/23 Hgb 13.3 g/dl (14.0-18.0) L 11/04/23 Hct 40.3 % (42.0-52.0) L 11/04/23 Plt Count 198 K/uL (130-400) 11/04/23 PG Care Time/CCT Total # of Minutes Spent Total Time Spent with Patient: Total time spent is greater than 50% in coordination of care (as documented) at patient's floor/unit and/or counseling patient: Coding Level of Care Code 16774 INT INP/OBS CARE 2MIN Diagnoses Diverticulitis of large intestine with abscess K57.20
[2023-11-03] MEDS: PIPERACILLIN/TAZOBACTAM 4.5 GM/100 ML BAG IV ONE (15:52)
--- NOTE | 2023-11-03 16:11 | History & Physical Report ---
Date of Service November 03, 2023 Assessment & Plan (1) Diverticulitis of large intestine with abscess: Plan: Diverticulitis with abscess Leukocytosis o CTA/P: Pericolonic abscess/cystic collection 3.4 x 2.3 cm abutting the mid descending colon. Acute diverticulitis. Surgery consulted. Okay for admission. Was reviewed with IR abscess is too small to drain. GI recommended for consult. Recommended IV fluids, antiemetics, antibiotics, and pain control with admission to medicine at this time. Continue Zosyn Tylenol, hydromorphone for scaled analgesic control Zofran as needed Patient reports he thinks he has had some pain with meals. Will keep n.p.o. at this time admitted on IV FM under 5 cc/h (2) Alcoholism: Plan: In remission for 3 years, no recent use. (3) Tobacco use: Plan: In remission for around 3 years no recent (4) Diabetes mellitus: Plan: Diet controlled last A1c 7.5%. SSI while admitted. Plan Chronic stable issues: Patient has essential resting tremor which has been present since around age 28. Is pending follow-up for focused ultrasound versus brain stimulator however there is no change in this in the last several years. No acute change in management at this time DVT prophylaxis: Lovenox Disposition: Medical/surgical CODE STATUS: Full code Diet: N.p.o. History of Present Illness Primary Care Provider: PRETTY Vasques Chang is a 63-year-old male with a history of alcoholism, diabetes presents with abdominal pain of 2 weeks progrssively worsening with initial symptoms up to 2 months ago. Diverticulitis w/ multiloculated abscess. Surgery consulted. Recommended for medical admission. IV abx recommended. Seen at the bedside "Elijah' reports his main concern is pain in his his mid to left sided low abdomen. Whats bothering him the most is some left flank pain intermittently 'like something is sunk in there and uncomfortable.' Pain in the abdomen may have been there as long as 1-2 months ago when he started to do situps, but started to 'hurt like it shouldn't around 2 weeks ago.' No fevers, swats. Chills x1-2 days no nausea/vomiting. No blooyd or black BMs, just 'different colors of brown.' Has has some mild constipation/decrease in freqnecy last few weeks. Surgical Hx: 2 years ago had appendix removed, last year had seroma of the R flank. Was actually found to have a hernia and mesh was put in at [facility]. PCP is Prince Chan. Diet controlled DM, down to 7.5% with exercise and diet control. Last 'I worked my ass off to get to the 120s on the glucometer, can get it down to 112 more easily until this pain started' Has a central tremor unchanged since his 50s. Has thought about stimulator therapy, but deferred for now. No acute change in sx. Thinks he may have has some pain with meals, but had egg biscuit sandwhich with grand terrace today with no pain. Medical History: Reviewed Medications: Reviewed Surgical History: Reviewed Family history: Reviewed Allergies: Reviewed Social History: No etoh in over 3 years. Chew and snuff intermittently. Code Status: Full code Allergies Allergy/AdvReac Type Severity Reaction Status Date / Time cat dander Allergy Intermediate ITCHY Verified 11/03/23 15:32 EYES, SNEEZING, CONGESTION Home Medications Medication Instructions Recorded Confirmed Type No Known Home Medications 03/23/20 11/03/23 History Past Med/Surg History Medical History Alcoholism Alcohol withdrawal Tachyarrhythmia Abnormal LFTs Low magnesium level Diabetes mellitus Alcohol intoxication Diabetes Surgical History Status post hernia repair Status post appendectomy Social History Smoking Status: Current every day smoker Tobacco Type: Smokeless Tobacco (Dip or Chew) Cigarettes Per Day: 1 pack/day; Hx Alcohol Use: Yes Alcohol type: beer and hard liquor Hx Substance Use: No Preferred Language: Syrian Communication Ability: Effective Economic Analyst Required: No Beliefs That Will Affect Care: Zoroastrian Current Living Situation: Alone Current Living Situation Comment: Lives at home alone independently Feels Safe at Home: Yes Assistive Devices: None Physical Exam Physical Exam: General: A&Ox3. NAD. Cooperative. HEENT: Atraumatic, normocephalic. Pulm:Symmetrical chest rise. No increased work of breathing. No respiratory distress. Cardiac: RRR, -mrg. Radial pulses intact and symmetrical. Abdominal: suprapubic and LLQ ttp, flank ttp. no rebound/guarding. Ext: global resting tremor, unchanged from prior per pt. [employer] strength intact 5/5 bilat. Warm/dry. Results & Data Results & Data Vital Signs (Past 12 Hours) Vital Signs Temp Pulse Resp BP Pulse Ox O2 Del Method 11/03/23 14:17 37.1 C 82 20 164/84 H 94 Room Air PG Care Time/CCT Total # of Minutes Spent Total Time Spent with Patient: Total time spent is greater than 50% in coordination of care (as documented) at patient's floor/unit and/or counseling patient: Coding Level of Care Code 80713 INT INP/OBS CARE MIN Diagnoses Diverticulitis of large intestine with abscess K57.20 Alcoholism F10.20 Tobacco use Z72.0 Diabetes mellitus E11.9
[2023-11-03] MEDS ORDERED: ACETAMINOPHEN 1,000 MG/100 ML VIAL IV PRN (16:30)
[2023-11-03] MEDS ORDERED: ONDANSETRON INJ 2 MG/ML 2 ML VIAL IV PRN (16:32)
[2023-11-03] MEDS ORDERED: GLUCAGON FOR INJ 1 MG VIAL SQ PRN (16:33)
[2023-11-03] MEDS ORDERED: GLUCOSE 10 TAB/TUBE PO PRN (16:33)
[2023-11-03] MEDS ORDERED: GLUCOSE 40% GEL 15 GM TUBE PO PRN (16:33)
[2023-11-03] MEDS ORDERED: DEXTROSE 50% 50 ML SYRINGE IV PRN (16:33)
[2023-11-03] MEDS ORDERED: CARBOHYDRATES FOR HYPOGLYCEMIA PO PRN (16:33)
[2023-11-03] MEDS ORDERED: ACETAMINOPHEN 325 MG TAB PO PRN (18:20)
[2023-11-03] MEDS: LACTATED RINGER'S 1,000 ML IV SCH (18:30)
[2023-11-03] MEDS: INSULIN ASPART PER UNIT CHARGE SC SCH (21:10)
[2023-11-03] MEDS: PIPERACILLIN/TAZOBACTAM 4.5 GM in DEXTROSE 5% MINI-B 100 ML IV SCH (21:11)
[2023-11-04] MEDS: ENOXAPARIN INJ 40 MG/0.4 ML SYR SQ SCH (07:24)
[2023-11-04 07:29] LABS: Basophils # (auto) 0.05 K/uL (0.00-0.20); Basophils % (auto) 0.5 %; Eosinophils # (auto) 0.57 K/uL (0.00-0.50); Eosinophils % (auto) 5.6 %; Hematocrit (blood only) 40.3 % (42.0-52.0); Hemoglobin 13.3 g/dl (14.0-18.0); Immature Granulocytes # (auto) 0.02 K/uL (0.01-0.20); Immature Granulocytes % (auto) 0.2 %; Lymphocytes # (auto) 1.36 K/uL (1.20-3.40); Lymphocytes % (auto) 13.3 %; Mean Corpuscular Hemoglobin 28.7 pg (25.0-34.0); Mean Corpuscular Volume 86.9 fL (80.0-100.0); Mean Platelet Volume 11.6 fL (9.4-12.4); Monocytes % (auto) 12.7 %; Neutrophils # (auto) 6.95 K/uL (1.40-6.50); Neutrophils % (auto) 67.7 %; Platelet Count 198 K/uL (130-400); RDW Coefficient of Variation 13.2 % (11.5-14.5); RDW Standard Deviation 41.7 fL (36.4-46.3); Red Blood Count 4.64 M/uL (4.70-6.10); White Blood Count 10.25 K/ul (4.8-10.8)
[2023-11-04 07:47] LABS: BUN Creatinine Ratio 13.9 (10-20); Calcium 8.8 mg/dl (8.6-10.3); Creatinine Clr Calc Pharmacy 96.3 ml/min; Est GFR (African American) 109.2 ml/min; Est GFR (Non-African American) 94.2 ml/min; Magnesium 1.9 mg/dl (1.7-2.4); Potassium 3.8 mmol/L (3.5-5.1)
--- NOTE | 2023-11-04 07:56 | Surgery Progress Note ---
Date of Service November 04, 2023 Assessment & Plan (1) Diverticulitis of large intestine with abscess: Plan: Pt here with diverticulitis with abscess, not amenable to drainage at this time by IR given small size WBC 10 (12). Vitals stable and patient afebrile Remains with LLQ ttp, not worsening Ordered for clears today by medicine, will see how he fairs Continue on IV abx Encourage ambulation No plans for surgical intervention required at this time. Will need outpatient GI f/u for colonoscopy (never had one before) Admission and Anticipated Discharge Date Admission Date: November 03, 2023 Supervising Physician Co-Signing Physician Notes I personally saw and evaluated the patient with Cesia Azevedo PA-C and agree with the assessment and plan 63 yo male with diverticulitis and small pericolonic abscess WBC down to 10 Continue IV ABX Ok with clear liquids No plans for surgery Subjective Patient feeling okay this AM, but says he had some pain overnight in the LLQ. No nausea/vomiting. + flatus. Last BM yesterday. Physical Exam Physical Exam: awake/alert, no distress Respiratory: normal respiratory effort Gastrointestinal (Abdomen): Inspection/Auscultation: abdomen not distended Percussion/Palpation: + abdomen tender (ttp in LLQ) and abdomen soft Results & Data Vital Signs (Past 12 Hours) Vital Signs Temp Pulse Resp BP Pulse Ox O2 Del Method 11/03/23 22:37 Room Air 11/03/23 21:11 97.9 F 66 18 154/81 H 96 Room Air 11/03/23 20:55 97.9 F 66 18 154/81 H 96 Room Air PG Care Time/CCT Total # of Minutes Spent Total Time Spent with Patient: Total time spent is greater than 50% in coordination of care (as documented) at patient's floor/unit and/or counseling patient: Coding Level of Care Code 76993 SUB INP/OBS CARE Diagnoses Diverticulitis of large intestine with abscess K57.20 Diverticulitis bleeding: unspecified bleeding status (1) Diverticulitis of large intestine with abscess Diverticulitis bleeding: unspecified bleeding status Qualified Code(s): K57.20 - Diverticulitis of large intestine with perforation and abscess without bleeding
--- NOTE | 2023-11-04 10:22 | Gastrointestinal Consultation ---
Date of Consultation November 04, 2023 Assessment & Plan (1) Diverticulitis of large intestine with abscess: -Continue IV Zosyn -Continue clear liquid diet -Agree with treatment per gen surg/hospitalists -Colonoscopy in 6-8 weeks Supervising Physician Co-Signing Physician Notes Agree with ARNALDO Wilkinson as above Interviewed and examined patient and agree with above Abd: Soft, tender LLQ, ND, +BS Continue current therapy and supportive care History of Present Illness Reason for Consultation: Diverticulitis Attending Physician: Molly Wick MD History of Present Illness Patient is a 63 yo male with a PMH of alcoholism, tremor, and DM2 who presents to the hospital with 2 weeks of worsening LLQ abdominal pain. He notes that in hindsight, he has been having similar episodes over the past [address] scan in the ED indicated diverticulitis with abscess of the descending colon. IR evaluated and felt it was too small to drain. He is admitted on a clear liquid diet and is being treated with IV Zosyn. He notes some persistent pain in the LLQ. He has not had a colonoscopy in the past. He denies family history of GI malignancy or other GI issues. He denies diarrhea. He does note recent constipation. WBC 10,250. Allergies Allergy/AdvReac Type Severity Reaction Status Date / Time cat dander Allergy Intermediate ITCHY Verified 11/03/23 15:32 EYES, SNEEZING, CONGESTION Home Medications Medication Instructions Recorded Confirmed Type No Known Home Medications 03/23/20 11/03/23 History Patient History Medical History Alcoholism Alcohol withdrawal Tachyarrhythmia Abnormal LFTs Low magnesium level Diabetes mellitus Alcohol intoxication Diabetes Surgical History Status post hernia repair Status post appendectomy Social History Smoking Status: Former smoker Tobacco Type: Smokeless Tobacco (Dip or Chew) Cigarettes Per Day: 1 pack/day; Do You Dip or Chew Tobacco: Yes; Hx Alcohol Use: Yes Alcohol type: beer Hx Substance Use: No Preferred Language: Ecuadorean Communication Ability: Effective Glass Block Bender Required: No Beliefs That Will Affect Care: None Current Living Situation: Alone Current Living Situation Comment: Lives at home alone independently Other Information That Helps Us Care for You: No Feels Safe at Home: Yes Safety Concerns: Feels Safe At This Time Assistive Devices: None Review of Systems Constitutional: no fever and no chills Respiratory: no cough and no dyspnea Cardiovascular: no chest pain Gastrointestinal: + abdominal pain; no diarrhea/loose stoo ls and no blood in stools Physical Exam Constitutional: well developed Respiratory: normal respiratory effort Cardiovascular: Rate/Rhythm: regular rate Gastrointestinal (Abdomen): Inspection/Auscultation: abdomen normal to inspection Percussion/Palpation: + abdomen tender and abdomen soft Results & Data Vital Signs (Past 12 Hours) Vital Signs Temp Pulse Resp BP Pulse Ox O2 Del Method 11/04/23 07:05 37 C 64 18 122/73 94 Room Air 11/03/23 22:37 Room Air PG Care Time/CCT Total # of Minutes Spent Total Time Spent with Patient: Total time spent is greater than 50% in coordination of care (as documented) at patient's floor/unit and/or counseling patient: Coding Level of Care Code 44999 INT INP/OBS CARE MIN Diagnoses Diverticulitis of large intestine with abscess K57.20 Diverticulitis bleeding: unspecified bleeding status (1) Diverticulitis of large intestine with abscess Diverticulitis bleeding: unspecified bleeding status Qualified Code(s): K57.20 - Diverticulitis of large intestine with perforation and abscess without bleeding
--- NOTE | 2023-11-04 19:23 | Hospitalist Progress Note ---
Date of Service November 04, 2023 Assessment & Plan (1) Diverticulitis of large intestine with abscess: Plan: L descending colon acute diverticulitis with abscess Pericolonic abscess/cystic collection 3.4 x 2.3 cm abutting the mid descending colon. Surgery consulted. Was reviewed with IR abscess is too small to drain. - continue clear liquids, antiemetics, antibiotics, and pain control with admission to medicine at this time. Continue pip-tazo, leukocytosis improved Tylenol, hydromorphone for scaled analgesic control Zofran as needed GI consulted recommends outpatient colonoscopy (2) Alcoholism: Plan: In remission for 3 years, no recent use. (3) Tobacco use: Plan: In remission for around 3 years no recent (4) Diabetes mellitus: Plan: Diet controlled last A1c 7.5%. SSI while admitted. -BG at goal excepting one high of 207 Plan Chronic stable issues: Patient has essential resting tremor which has been present since around age 28. Is pending follow-up for focused ultrasound versus brain stimulator however there is no change in this in the last several years. No acute change in management at this time DVT prophylaxis: Lovenox Disposition: Medical/surgical CODE STATUS: Full code Diet: N.p.o. Admission and Anticipated Discharge Date Admission Date: November 03, 2023 Subjective Continues to have some L sided abdominal pain but improved, not taking any meds for pain, no nausea or emesis Physical Exam 2 Physical Exam: VS reviewed ast 24h notable for mildly elevated BP, afebrile Sitting on EOB, appears comfortable Lungs CTAB no rrw Heart reg no mrg Abd s/ND, mild TTP L abdomen without rrg +BT LE wwp without edema Skin w/d no rashes AOx4 normal speech and mentation face symmetric maew x 4 Results & Data Results & Data Vital Signs (Past 12 Hours) Vital Signs Temp Pulse Resp BP Pulse Ox O2 Del Method 11/04/23 15:05 36.7 C 67 18 147/72 H 95 Room Air Laboratory Results 11/04/23 06:46 11/04/23 06:46 PG Care Time/CCT Total # of Minutes Spent Total Time Spent with Patient: Total time spent is greater than 50% in coordination of care (as documented) at patient's floor/unit and/or counseling patient: Coding Level of Care Code 80035 SUB INP/OBS CARE 2/35MIN Diagnoses Diverticulitis of large intestine with abscess K57.20 Diverticulitis bleeding: unspecified bleeding status Alcoholism F10.20 Tobacco use Z72.0 Diabetes mellitus E11.9 (1) Diverticulitis of large intestine with abscess Diverticulitis bleeding: unspecified bleeding status Qualified Code(s): K 57.20 - Diverticulitis of large intestine with perforation and abscess without bleeding
[2023-11-04] MEDS: HYDROmorphone INJ 1 MG/ML SYRINGE IV PRN (20:48)
[2023-11-04] MEDS ORDERED: Nursing to Pharmacy Communication SCH (21:15)
[2023-11-05 07:58] LABS: Basophils # (auto) 0.05 K/uL (0.00-0.20); Basophils % (auto) 0.5 %; Eosinophils # (auto) 0.45 K/uL (0.00-0.50); Eosinophils % (auto) 4.7 %; Hematocrit (blood only) 37.9 % (42.0-52.0); Hemoglobin 12.6 g/dl (14.0-18.0); Immature Granulocytes # (auto) 0.03 K/uL (0.01-0.20); Immature Granulocytes % (auto) 0.3 %; Lymphocytes # (auto) 1.19 K/uL (1.20-3.40); Lymphocytes % (auto) 12.3 %; Mean Corpuscular Hgb Conc 33.2 g/dL (32.0-36.0); Mean Corpuscular Volume 87.3 fL (80.0-100.0); Mean Platelet Volume 11.5 fL (9.4-12.4); Monocytes # (auto) 1.15 K/uL (0.11-0.59); Monocytes % (auto) 11.9 %; Neutrophils # (auto) 6.79 K/uL (1.40-6.50); Neutrophils % (auto) 70.3 %; Platelet Count 182 K/uL (130-400); RDW Coefficient of Variation 12.9 % (11.5-14.5); RDW Standard Deviation 41.2 fL (36.4-46.3); Red Blood Count 4.34 M/uL (4.70-6.10); White Blood Count 9.66 K/ul (4.8-10.8)
[2023-11-05 08:11] LABS: BUN Creatinine Ratio 7.6 (10-20); Calcium 8.6 mg/dl (8.6-10.3); Creatinine Clr Calc Pharmacy 96.3 ml/min; Est GFR (African American) 109.2 ml/min; Est GFR (Non-African American) 94.2 ml/min; Potassium 3.8 mmol/L (3.5-5.1)
--- NOTE | 2023-11-05 11:59 | Surgery Progress Note ---
Date of Service November 05, 2023 Assessment & Plan (1) Diverticulitis of large intestine with abscess: Plan: Doing better advance to fulls continue IV ABX today If doing well can have low fiber diet for dinner or breakfast tomorrow with tentative plans for discharge home tomorrow Admission and Anticipated Discharge Date Admission Date: November 03, 2023 Subjective Pt seen and examined. Afebrile. Feels better than yesterday. Tolerating clears. Review of Systems Constitutional: no fever and no chills Physical Exam Constitutional: WD/WN, vitals as above Gastrointestinal (Abdomen): Inspection/Auscultation: abdomen normal to inspection; abdomen not distended Percussion/Palpation: + abdomen tender (mild left flank) and abdomen soft; no guarding Results & Data Vital Signs (Past 12 Hours) Vital Signs Temp Pulse Resp BP Pulse Ox O2 Del Method 11/05/23 08:30 Room Air 11/05/23 08:15 36.8 C 64 16 126/62 93 Room Air PG Care Time/CCT Total # of Minutes Spent Total Time Spent with Patient: Total time spent is greater than 50% in coordination of care (as documented) at patient's floor/unit and/or counseling patient: Coding Level of Care Code 98248 SUB INP/OBS CARE 08/14MIN Diagnoses Diverticulitis of large intestine with abscess K57.20 Diverticulitis bleeding: unspecified bleeding status (1) Diverticulitis of large intestine with abscess Diverticulitis bleeding: unspecified bleeding status Qualified Code(s): K57.20 - Diverticulitis of large intestine with perforation and abscess without bleeding
--- NOTE | 2023-11-05 18:37 | Hospitalist Progress Note ---
Date of Service November 05, 2023 Assessment & Plan (1) Diverticulitis of large intestine with abscess: Plan: L descending colon acute diverticulitis with abscess Pericolonic abscess/cystic collection 3.4 x 2.3 cm abutting the mid descending colon. Surgery consulted. Was reviewed with IR abscess is too small to drain. - continue IV antibiotics today, and pain control - change to po Continue pip-tazo, leukocytosis resolved, afebrile Tylenol, oxycodone for scaled analgesic control Zofran as needed GI consulted recommends outpatient colonoscopy Per surgery advance as tolerated to low fiber diet. Would be able to discharge tomorrow if tolerates. (2) Alcoholism: Plan: In remission for 3 years, no recent use. (3) Tobacco use: Plan: In remission for around 3 years no recent (4) Diabetes mellitus: Plan: Diet controlled last A1c 7.5%. SSI while admitted. -BG at goal excepting one high of 223 Plan Chronic stable issues: Patient has essential resting tremor which has been present since around age 28. Is pending follow-up for focused ultrasound versus brain stimulator however there is no change in this in the last several years. No acute change in management at this time DVT prophylaxis: Lovenox Disposition: Medical/surgical CODE STATUS: Full code Admission and Anticipated Discharge Date Admission Date: November 03, 2023 Subjective feeling better, tolerated CLD, L abdominal pain improved. No nausea Physical Exam 2 Physical Exam: VS reviewed ast 24h notable for mildly elevated BP, afebrile lying in bed, appears comfortable exam unchanged 11/04: Lungs CTAB no rrw Heart reg no mrg Abd s/ND, mild TTP L abdomen without rrg +BT LE wwp without edema Skin w/d no rashes AOx4 normal speech and mentation face symmetric maew x 4 Results & Data Results & Data Vital Signs (Past 12 Hours) Vital Signs Temp Pulse Resp BP Pulse Ox O2 Del Method 11/05/23 14:13 37.3 C 70 18 142/65 H 92 Room Air 11/05/23 08:30 Room Air 11/05/23 08:15 36.8 C 64 16 126/62 93 Room Air Laboratory Results 11/05/23 07:18 11/05/23 07:18 PG Care Time/CCT Total # of Minutes Spent Total Time Spent with Patient: Total time spent is greater than 50% in coordination of care (as documented) at patient's floor/unit and/or counseling patient: Coding Level of Care Code 69539 SUB INP/OBS CARE MIN Diagnoses Diverticulitis of large intestine with abscess K57.20 Diverticulitis bleeding: unspecified bleeding status Alcoholism F10.20 Tobacco use Z72.0 Diabetes mellitus E11.9 (1) Diverticulitis of large intestine with abscess Diverticulitis bleeding: unspecified bleeding status Qualified Code(s): K 57.20 - Diverticulitis of large intestine with perforation and abscess without bleeding
[2023-11-05] MEDS: HYDROmorphone INJ 0.5 MG/0.5 ML SYR IV PRN (20:53)
[2023-11-06 07:03] LABS: Basophils # (auto) 0.04 K/uL (0.00-0.20); Basophils % (auto) 0.4 %; Eosinophils # (auto) 0.49 K/uL (0.00-0.50); Eosinophils % (auto) 5.1 %; Hematocrit (blood only) 41.6 % (42.0-52.0); Hemoglobin 13.7 g/dl (14.0-18.0); Immature Granulocytes # (auto) 0.04 K/uL (0.01-0.20); Immature Granulocytes % (auto) 0.4 %; Lymphocytes % (auto) 15.6 %; Mean Corpuscular Hemoglobin 28.8 pg (25.0-34.0); Mean Corpuscular Hgb Conc 32.9 g/dL (32.0-36.0); Mean Corpuscular Volume 87.6 fL (80.0-100.0); Mean Platelet Volume 11.2 fL (9.4-12.4); Monocytes # (auto) 1.08 K/uL (0.11-0.59); Monocytes % (auto) 11.2 %; Neutrophils # (auto) 6.46 K/uL (1.40-6.50); Neutrophils % (auto) 67.3 %; Platelet Count 210 K/uL (130-400); RDW Standard Deviation 42.1 fL (36.4-46.3); Red Blood Count 4.75 M/uL (4.70-6.10); White Blood Count 9.61 K/ul (4.8-10.8)
[2023-11-06 07:40] LABS: BUN Creatinine Ratio 7.5 (10-20); Calcium 9.2 mg/dl (8.6-10.3); Creatinine Clr Calc Pharmacy 95.1 ml/min; Est GFR (African American) 108.7 ml/min; Est GFR (Non-African American) 93.7 ml/min
--- NOTE | 2023-11-06 08:47 | Surgery Progress Note ---
Date of Service November 06, 2023 Assessment & Plan (1) Diverticulitis of large intestine with abscess: Plan: Tolerating a low fiber diet without issue He has no leukocytosis or fevers He can be discharged from a surgical standpoint and follow-up with colorectal ryan rgery He will need 2 weeks of antibiotics p.o. upon discharge Surgery will sign off at this time, please call with any questions or concerns Admission and Anticipated Discharge Date Admission Date: November 03, 2023 Subjective Patient seen and examined with minimal abdominal pain at this point. Has been tolerating a low fiber diet. Afebrile. Review of Systems Constitutional: no fever and no chills Physical Exam Constitutional: WD/WN, vitals as above Gastrointestinal (Abdomen): normal bowel sounds, soft, nontender, no hepatosplenomegaly Results & Data Vital Signs (Past 12 Hours) Vital Signs Temp Pulse Resp BP Pulse Ox O2 Del Method 11/06/23 08:08 36.7 C 72 18 147/71 H 93 Room Air PG Care Time/CCT Total # of Minutes Spent Total Time Spent with Patient: Total time spent is greater than 50% in coordination of care (as documented) at patient's floor/unit and/or counseling patient: Coding Level of Care Code 08892 SUB INP/OBS CARE 08/14MIN Diagnoses Diverticulitis of large intestine with abscess K57.20 Diverticulitis bleeding: unspecified bleeding status (1) Diverticulitis of large intestine with abscess Diverticulitis bleeding: unspecified bleeding status Qualified Code(s): K57.20 - Diverticulitis of large intestine with perforation and abscess without bleeding
--- NOTE | 2023-11-06 18:36 | Discharge Summary ---
Date of Service November 06, 2023 Admission HPI Per Admitting Provider Chang is a 63-year-old male with a history of alcoholism, diabetes presents with abdominal pain of 2 weeks progrssively worsening with initial symptoms up to 2 months ago. Diverticulitis w/ multiloculated abscess. Surgery consulted. Recommended for medical admission. IV abx recommended. Seen at the bedside "Elijah' reports his main concern is pain in his his mid to left sided low abdomen. Whats bothering him the most is some left flank pain intermittently 'like something is sunk in there and uncomfortable.' Pain in the abdomen may have been there as long as 1-2 months ago when he started to do situps, but started to 'hurt like it shouldn't around 2 weeks ago.' No fevers, swats. Chills x1-2 days no nausea/vomiting. No blooyd or black BMs, just 'different colors of brown.' Has has some mild constipation/decrease in freqnecy last few weeks. Surgical Hx: 2 years ago had appendix removed, last year had seroma of the R flank. Was actually found to have a hernia and mesh was put in at [facility]. PCP is Prince Chan. Diet controlled DM, down to 7.5% with exercise and diet control. Last 'I worked my ass off to get to the 120s on the glucometer, can get it down to 112 more easily until this pain started' Has a central tremor unchanged since his 50s. Has thought about stimulator therapy, but deferred for now. No acute change in sx. Thinks he may have has some pain with meals, but had egg biscuit sandwhich with matos today with no pain. Principal Diagnosis acute diverticulitis with small diverticular abscess Discharge Exam PHYSICAL EXAMINATION Last 24h vital signs reviewed, see documentation in flowsheet General: comfortable appearing, no distress HEENT: Normocephalic, atraumatic, pupils round and equal, sclerae anicteric, no conjunctival injection, moist mucus membranes Lungs: Normal respiratory effort. Clear to auscultation bilaterally. No RRW Heart: Regular rate and rhythm, no murmurs. No JVD Abdomen: Soft, mildly tender to deep palpation left mid abdomen no RRG, nondistended. Bowel sounds present. Extremities: Warm, dry, well-perfused. No extremity edema. Neuro: Alert and oriented x 4, face symmetric, moves 4 extremities well Psych: Normal affect and behavior Discharge Data Allergies Allergy/AdvReac Type Severity Reaction Status Date / Time cat dander Allergy Intermediate ITCHY Verified 11/03/23 15:32 EYES, SNEEZING, CONGESTION Consultations 11/03/23 14:52 Consult General Surgery Stat 11/03/23 15:23 ED Decision to Admit Stat 11/03/23 15:40 ED Decision to Admit Stat 11/03/23 18:20 Consult Gastroenterology Routine Ordered Studies 11/06/23 06:42 11/06/23 06:42 Hospital Course (1) Diverticulitis of large intestine with abscess: L descending colon acute diverticulitis with abscess Pericolonic abscess/cystic collection 3.4 x 2.3 cm abutting the mid descending colon found on outpatient CT scan. Surgery consulted. Was reviewed with IR abscess is too small to drain. - treated with IV pip-tazo, transition to oral Augmentin for total 14-day course - leukocytosis resolved, afebrile, tolerated advancement of diet to low fiber - GI consulted and arranging outpatient colonoscopy in 6 to 8 weeks surgeon recommended outpatient referral to colorectal surgeon, which was made discussed return precautions if any significant increase in abdominal pain or fevers, seek medical attention, would need repeat CT to reevaluate abscess (2) Alcoholism: In remission for 3 years, no recent use. (3) Tobacco use: In remission for around 3 years no recent (4) Diabetes mellitus: Diet controlled last A1c 7.5%. Plan Chronic stable issues: Patient has essential resting tremor which has been present since around age 28. Is pending follow-up for focused ultrasound versus brain stimulator however there is no change in this in the last several years. No acute change in management at this time Total Time Total Time Spent Total Time Spent (In Minutes): less than 30 minutes Discharge Plan Discharge Items Patient Disposition: Home - Self-Care Reason For Visit: DIVERTICULITIS WITH ABSCESS Discharge Diagnosis: acute diverticulitis with abscess Activity: Resume your previous activity Non-emergency contact: Primary Care Provider Call non-emergency contact if: you have any medication questions, your symptoms worsen and you have a fever Follow-up/Referrals: Miguel Beauchamp CRNP [Primary Care Provider] - 11/17/23 10:20 am Case,Neal G., DO [Physician] - Diet: Low Fiber Addtl Attending Provider Instructions: Acute diverticulitis with abscess that is too small to drain - small abscesses typically resolve with antibiotics. -call your doctor if you have increasing abdominal pain or fevers -follow up in primary care within 2 weeks. your blood pressure was mildly to moderately elevated in the hospital - please have rechecked in primary care or with home cuff -take antibiotics for total 2 weeks (12 more days of oral antibiotic) -stay on a low fiber diet for a week or two, once abdominal pain completely resolves you can resume your usual diet -you may want to take a probiotic for 2-4 weeks to prevent diarrhea - these are available over the counter You should follow up with GI outpatient for a colonoscopy in 6-8 weeks. Call soon to schedule You should follow up with a colorectal surgeon outpatient. We made a referral It is ok to use acetaminophen for pain - max 3000 mg per 24h, and it is also ok to use an NSAID like ibuprofen or naproxen for max of 2 weeks. Try to avoid too much NSAID use, acetaminophen is safer for the kidneys and stomach Pending Studies at Discharge: Yes Studies:: blood cultures - no growth at 72 hours. these finalize after 5 days Stand-Alone Forms: My [facility] Matomy Money, Smoking Cessation Medications and DC Order Prescriptions: New amoxicillin-pot clavulanate 875-125 mg tablet 1 tab PO BID Qty: 24 0RF No Action No Known Home Medications Discharge Orders: Discharge Order (Routine); Ordered 11/06/23 Ordered By: Molly Jang/Other Patient Handouts: Low-Fiber Diet, Diverticulitis Dc Admission Data Admit Date/Time: 11/03/23 16:29 Attending Provider: Molly Wick Admit Provider: Shaggy Peña Primary Care Provider: Miguel Beauchamp Other Providers: Shaggy Peña; Harpal Mathew; Neal Gonsalves Other Interventions: Discharge Summary Assessment (RN) Last Done: 11/06/23 11:19 Coding Level of Care Code 03489 IN/OBS DISCH 30 MIN/LESS Diagnoses Diverticulitis of large intestine with abscess K57.20 Diverticulitis bleeding: unspecified bleeding status Alcoholism F10.20 Tobacco use Z72.0 Diabetes mellitus E11.9
== END 2023-11-06 12:58 | disposition home or self-care (01) | DRG 392 ==
LOC: ED 14:08 → 3W 16:29 → SUATTDRO 16:29 → 3W 18:07